=== PATIENT | male | born 1950 | race Caucasian/White ===

== ENCOUNTER 2021-03-09 12:20 | Inpatient (IN) | payer OTHER, SELFPAY ==
--- NOTE | ~2021-03-09 | XR_ITS ---
EXAMINATION: XR CHEST CLINICAL INFORMATION: Shortness of breath COMPARISON: None TECHNIQUE: Portable upright AP view of the chest was obtained. FINDINGS: There are scattered airspace opacities right lung upper and lower zone and left lung mid and lower zone with sparing left apex. There is no pneumothorax or vascular congestion or effusion. The heart is normal in size. The hilar and mediastinal contours and visualized bony structures are unremarkable. XR/XR chest 1V IMPRESSION: 1. Scattered bilateral airspace opacities, greater on the right. 2. No vascular congestion or effusion.
[2021-03-09 12:49] VITALS: BP 159/88; BP 170/90; PULSE 104; PULSE 112; RESP 15; TEMP 37.1; O2SAT 85; O2SAT 91; BMI 31.5
[2021-03-09 13:00] VITALS: O2SAT 88
--- NOTE | 2021-03-09 13:01 | ECG_ITS ---
Test Reason : sob Blood Pressure : / mmHG Vent. Rate : 105 BPM Atrial Rate : 105 BPM P-R Int : 178 ms QRS Dur : 112 ms QT Int : 348 ms P-R-T Axes : 031 -08 018 degrees QTc Int : 459 ms Baseline artifact Sinus tachycardia Inferior infarct , age undetermined Abnormal ECG No previous ECGs available Referred By: Phong Davidson Electronically Signed By:COLETTE SUE
--- NOTE | 2021-03-09 13:04 | ED_ITS ---
HPI - SOB/Dyspnea General Chief Complaint: Dyspnea Stated Complaint: +COVID, SOB 93% 2LPM,DIZZY,LOW APPETITE Time Seen by Provider: 03/09/21 12:50 Source: patient and EMS History of Present Illness HPI Narrative: Patient with approximately 7 days worth of URI symptoms. He states he tested positive for COVID when symptoms started 1 week ago. Positive cough. No sputum. No chest pain. Decreased appetite but no abdominal pain No nausea vomiting diarrhea or constipation. No urinary symptoms. He was vaccinated with Anaplan in August,. Former smoker, quit 8 years ago. Hypertension Bilateral carotid endarterectomies No history that he knows of of COPD or asthma. Related Data Allergies Allergy/AdvReac Type Severity Reaction Status Date / Time No Known Allergies Allergy Unverified 03/09/21 13:01 Review of Systems Constitutional: Constitutional: Reports fatigue and Reports fever(s) Cardiovascular: Comments: No chest pain Respiratory: Comments: Shortness of breath and cough without phlegm Gastrointestinal: Comments: No nausea vomiting diarrhea or constipation. Positive anorexia Musculoskeletal: Comments: No extremity swelling or calf pain Integumentary/Breasts: Comments: No change in color or new rash Neurologic: Comments: No focal weakness Endocrine: Endocrine: Reports fatigue PMFSH Past Medical History Medical History (Updated 03/09/21 @ 14:54 by Phong Davidson MD) Hypertension Pulsus bigeminus Social History Social History Patient Tobacco Use Status: Former Tobacco user Advance Directives: No Advance Directives Information Provided: No Physical Exam Vital Signs: Vital Signs: Last Vital Signs Temp 98.7 F 03/09/21 12:49 Pulse 111 H 03/09/21 14:20 Resp 24 H 03/09/21 14:20 BP 143/74 H 03/09/21 14:20 Pulse Ox 92 03/09/21 14:20 BMI result Body Mass Index 31.5 Oxygen saturation drops to 88% on room air. Mid to low 90s on 2 L nasal cannula Const: Other: Appears fatigued. Resp: Other: Diminished bilaterally Cardio: Other: Regular rate and rhythm GI: Other: Soft nontender Skin: Other: Warm pink and dry Neuro: Other: Nonfocal neuro exam Extrem: Other: No calf tenderness or pedal edema Course Course Course Narrative: Hypoxia secondary to COVID-19 pneumonia Rule out bacterial pneumonia Treated emergency department with Solu-Medrol and albuterol Oxygen by nasal cannula Workup in emergency department shows lab work significant for normal CBC and nondiagnostic chemistries. Troponin is normal. BNP is normal Serology shows positive COVID-19 infection. Chest x-ray shows bilateral ground-glass opacities consistent with COVID pneumonia. D-dimer is mildly elevated at 360, be given extensive disease, on likely represents thromboembolic cause. Will hospitalize for further treatment secondary to hypoxia secondary to COVID- 19 pneumonia No evidence of sepsis MDM - SOB/Dyspnea Lab Data Result diagrams: 03/09/21 14:07 03/09/21 14:07 Labs: Lab Results 03/09/21 03/09/21 03/09/21 Range/Units 14:07 14:07 14:07 WBC 8.7 (4.8-10.8) X10*3/uL RBC 4.20 L (4.60-5.80) X10*6/uL Hgb 13.3 L (14.0-18.0) g/dl Hct 38.9 L (42.0-52.0) % MCV 92.6 (80.0-98.0) fL MCH 31.7 (27.0-33.0) pg MCHC 34.2 (31.0-36.0) g/dl RDW 12.4 (11.0-16.0) % Plt Count 131 L (160-400) X10*3/uL MPV 10.3 (9.4-12.4) fL Immature Gran % (Auto) 0.5 H (0.0-0.4) % Neut % (Auto) 80.1 H (45-73) % Lymph % (Auto) 12.6 L (20-40) % [place] % (Auto) 6.8 (2-11) % Eos % (Auto) 0.0 (0-4) % Baso % (Auto) 0.0 (0-2) % Lymph # (Auto) 1.1 L (1.2-4.9) X10*3/uL [place] # (Auto) 0.6 (0.1-1.2) X10*3/uL Eos # (Auto) 0.0 (0.0-0.4) X10*3/uL Baso # (Auto) 0.0 (0.0-0.2) X10*3/uL Abs Immat Gran (auto) 0.04 H (0.00-0.03) X10*3/uL Absolute Neuts (auto) 7.0 (2.0-8.3) x10*3/uL Absolute Nucleated RBC 0.000 (0.0-0.012) X10*3/uL Nucleated RBC % (auto) 0.0 (0.0-0.2) /100WBC D-Dimer High Sensitivty NG/ML Sodium 140 (135-145) mmol/L Potassium 3.7 (3.3-5.1) mmol/L Chloride 104 (96-108) mmol/L Carbon Dioxide 26 (22-29) mmol/L Anion Gap 14 (12-20) BUN 18 H (9-16) mg/dL Creatinine 1.13 (0.5-1.4) mg/dL Estim Creat Clear Calc 77.4 Estimated GFR > 60 Random Glucose 153 H (60-115) mg/dL Calcium 9.5 (8.4-10.2) mg/dL Total Bilirubin 1.2 H (0.0-1.0) mg/dL AST 45 H (5-37) U/L ALT 39 (0-40) U/L Alkaline Phosphatase 80 (39-117) U/L Troponin I High Sens 16.4 (<3.5-35.0) ng/L B-Natriuretic Peptide (<100) pg/mL Total Protein 7.5 (6.5-8.0) g/dL Albumin 4.1 (3.5-5.0) g/dL COVID-19 (FITO) (Negative) COVID-19 Clin Com 03/09/21 03/09/21 03/09/21 Range/Units 14:07 14:07 14:07 WBC (4.8-10.8) X10*3/uL RBC (4.60-5.80) X10*6/uL Hgb (14.0-18.0) g/dl Hct (42.0-52.0) % MCV (80.0-98.0) fL MCH (27.0-33.0) pg MCHC (31.0-36.0) g/dl RDW (11.0-16.0) % Plt Count (160-400) X10*3/uL MPV (9.4-12.4) fL Immature Gran % (Auto) (0.0-0.4) % Neut % (Auto) (45-73) % Lymph % (Auto) (20-40) % [place] % (Auto) (2-11) % Eos % (Auto) (0-4) % Baso % (Auto) (0-2) % Lymph # (Auto) (1.2-4.9) X10*3/uL [place] # (Auto) (0.1-1.2) X10*3/uL Eos # (Auto) (0.0-0.4) X10*3/uL Baso # (Auto) (0.0-0.2) X10*3/uL Abs Immat Gran (auto) (0.00-0.03) X10*3/uL Absolute Neuts (auto) (2.0-8.3) x10*3/uL Absolute Nucleated RBC (0.0-0.012) X10*3/uL Nucleated RBC % (auto) (0.0-0.2) /100WBC D-Dimer High Sensitivty 360 NG/ML Sodium (135-145) mmol/L Potassium (3.3-5.1) mmol/L Chloride (96-108) mmol/L Carbon Dioxide (22-29) mmol/L Anion Gap (12-20) BUN (9-16) mg/dL Creatinine (0.5-1.4) mg/dL Estim Creat Clear Calc Estimated GFR Random Glucose (60-115) mg/dL Calcium (8.4-10.2) mg/dL Total Bilirubin (0.0-1.0) mg/dL AST (5-37) U/L ALT (0-40) U/L Alkaline Phosphatase (39-117) U/L Troponin I High Sens (<3.5-35.0) ng/L B-Natriuretic Peptide 19 (<100) pg/mL Total Protein (6.5-8.0) g/dL Albumin (3.5-5.0) g/dL COVID-19 (FITO) Positive A (Negative) COVID-19 Clin Com See Note
[2021-03-09] MEDS: Albuterol Sulfate (0.083%) 2.5 MG/3 ML VIAL.NEB INHALE (13:19)
[2021-03-09 13:20] VITALS: PULSE 101; RESP 12; O2SAT 94
[2021-03-09 14:18] LABS: MANUAL DIFF FLAG NO
[2021-03-09 14:20] VITALS: BP 143/74; PULSE 111; RESP 24; O2SAT 92
[2021-03-09 14:22] LABS: Hematocrit 38.9 % (42.0-52.0); Hemoglobin 13.3 g/dl (14.0-18.0); Imm Gran Abs Auto 0.04 X10*3/uL (0.00-0.03); Imm Gran Pct Auto 0.5 % (0.0-0.4); Lymphocytes Absolute Auto 1.1 X10*3/uL (1.2-4.9); Lymphocytes Percent Auto 12.6 % (20-40); Mean Corpuscular HGB Conc 34.2 g/dl (31.0-36.0); Mean Corpuscular Hemoglobin 31.7 pg (27.0-33.0); Mean Corpuscular Volume 92.6 fL (80.0-98.0); Mean Platelet Volume 10.3 fL (9.4-12.4); Monocytes Absolute Auto 0.6 X10*3/uL (0.1-1.2); Monocytes Percent Auto 6.8 % (2-11); Neutrophils Percent Auto 80.1 % (45-73); Platelet Count 131 X10*3/uL (160-400); Red Cell Distribution Width 12.4 % (11.0-16.0); White Blood Count 8.7 X10*3/uL (4.8-10.8)
[2021-03-09] MEDS: methylPREDNISolone Sod Succ 125 MG/2 ML VIAL IVPUSH (14:22)
[2021-03-09] MEDS: 0.9 % Sodium Chloride 500 ML IV (14:22)
[2021-03-09 14:35] LABS: Alanine Aminotransferase 39 U/L (0-40); Albumin Level 4.1 g/dL (3.5-5.0); Alkaline Phosphatase 80 U/L (39-117); Anion Gap 14 (12-20); Aspartate Amino Transferase 45 U/L (5-37); Bilirubin Total 1.2 mg/dL (0.0-1.0); Blood Urea Nitrogen 18 mg/dL (9-16); Calcium 9.5 mg/dL (8.4-10.2); Carbon Dioxide 26 mmol/L (22-29); Chloride 104 mmol/L (96-108); Creatinine Clr Calc Pharmacy 77.4; Estimated Glomerular Filt Rate > 60; Glucose Random 153 mg/dL (60-115); Potassium 3.7 mmol/L (3.3-5.1); Sodium 140 mmol/L (135-145); Total Protein 7.5 g/dL (6.5-8.0)
[2021-03-09 14:37] LABS: D Dimer High Sensitivity 360 NG/ML
[2021-03-09 14:38] LABS: Troponin-I High Sensitivity 16.4 ng/L (<3.5-35.0)
[2021-03-09 14:39] LABS: B Type Natriuretic Peptide 19 pg/mL (<100)
[2021-03-09 14:42] LABS: COVID-19 Test Positive (Negative)
--- NOTE | 2021-03-09 15:40 | PM.IMHP ---
History of Present Illness Date of Service: 03/09/21 Chief Complaint: Shortness of breath A 70 years old male with hypertension as PMH presents to the hospital with complaint of worsening shortness of breath for the last 5 days. He reported that symptoms started almost 1 week to 5 days ago with runny nose and upper respiratory tract symptoms and worsened over the last few days on up until today when he climbs stairs and felt severe shortness of breath and lethargy. He came to the hospital for further evaluation and treatment. Denies any chest pain, nausea, vomiting, abdominal pain or urinary symptoms. The emergency found to be hypoxic on room ai to 88% Admitted for further evaluation and treatment. Review of Systems Review of Systems: No fever, chills but feels generalized weakness and decreased appetite No chest pain, palpitation Dyspnea on exertion No abdominal pain, nausea or vomiting No urinary symptoms No any rash or wounds PMFSH Medical History Hypertension Pulsus bigeminus Pertinent family history: Hypertension in parents Social History Patient Tobacco Use Status: Former Tobacco user Advance Directives: No Advance Directives Information Provided: No Meds Allergies Allergy/AdvReac Type Severity Reaction Status Date / Time No Known Allergies Allergy Unverified 03/09/21 13:01 Active Medications: Current Medications Pharmacy Consult (Consult Rx Perform Med Rec) 1 each MISCELLANE ONCE PRN PRN Reason: Consult order Physical Exam Vital Signs and Narrative: Vital Signs: Last Vital Signs Temp 98.7 F 03/09/21 12:49 Pulse 111 H 03/09/21 14:20 Resp 24 H 03/09/21 14:20 BP 143/74 H 03/09/21 14:20 Pulse Ox 92 03/09/21 14:20 BMI result Body Mass Index 31.5 Const: Other: Constitutional : Alert, oriented, in mild respiratory distress Neck : Normal inspection, Supple Cardiovascular : Palpable pulses, no lower extremity edema, tachycardia Respiratory : Chest wall moving bilaterally, tachypnea, in mild as with distress on oxygen supplement Gastrointestinal: soft, lax, Normal bowel sounds, Non tender Skin : Warm, Dry Neurological : Alert & oriented x3, No focal deficit Results Labs CBC and Chem 7: 03/09/21 14:07 03/09/21 14:07 Labs: Laboratory Results - last 24 hr 03/09/21 03/09/21 03/09/21 14:07 14:07 14:07 MCV 92.6 MCH 31.7 MCHC 34.2 RDW 12.4 Plt Count 131 L MPV 10.3 Immature Gran % (Auto) 0.5 H Neut % (Auto) 80.1 H Lymph % (Auto) 12.6 L [place] % (Auto) 6.8 Eos % (Auto) 0.0 Baso % (Auto) 0.0 Lymph # (Auto) 1.1 L [place] # (Auto) 0.6 Eos # (Auto) 0.0 Baso # (Auto) 0.0 Abs Immat Gran (auto) 0.04 H Absolute Neuts (auto) 7.0 Absolute Nucleated RBC 0.000 Nucleated RBC % (auto) 0.0 D-Dimer High Sensitivty Anion Gap 14 Estim Creat Clear Calc 77.4 Estimated GFR > 60 Random Glucose 153 H Calcium 9.5 Total Bilirubin 1.2 H AST 45 H ALT 39 Alkaline Phosphatase 80 Troponin I High Sens 16.4 B-Natriuretic Peptide Total Protein 7.5 Albumin 4.1 COVID-19 (FITO) COVID-19 [employer] 03/09/21 03/09/21 03/09/21 14:07 14:07 14:07 MCV MCH MCHC RDW Plt Count MPV Immature Gran % (Auto) Neut % (Auto) Lymph % (Auto) [place] % (Auto) Eos % (Auto) Baso % (Auto) Lymph # (Auto) [place] # (Auto) Eos # (Auto) Baso # (Auto) Abs Immat Gran (auto) Absolute Neuts (auto) Absolute Nucleated RBC Nucleated RBC % (auto) D-Dimer High Sensitivty 360 Anion Gap Estim Creat Clear Calc Estimated GFR Random Glucose Calcium Total Bilirubin AST ALT Alkaline Phosphatase Troponin I High Sens B-Natriuretic Peptide 19 Total Protein Albumin COVID-19 (FITO) Positive A COVID-19 Clin Com See Note Imaging Radiologist's Impressions: Impressions Chest X-Ray 03/09/21 14:15 IMPRESSION: 1. Scattered bilateral airspace opacities, greater on the right. 2. No vascular congestion or effusion. Assessment and Plan (1) Acute respiratory failure with hypoxia: Status: Acute (2) COVID-19: Status: Acute A 70 years old male with hypertension as PMH presents to the hospital with complaint of worsening shortness of breath for the last 5 days. Acute hypoxic respiratory failure COVID-19 infection Start dexamethasone 6 mg daily Oxygen supplement, to wean down as tolerated To get ID evaluation for possible remdesivir or other Wean down oxygen as tolerated DVT PPX Lovenox Quality Stroke Does the patient have a stroke diagnosis?: No VTE Prior VTE?: No VTE Risk Level:: Medical - moderate - high VTE Device Contraindication: Treatment Not Indicated VTE Drug Contraindication: N/A - Med Ordered
--- NOTE | 2021-03-09 16:15 | PHA.MEDREC ---
Pharmacy Consult ? Medication Reconciliation Pharmacy has completed the medication reconciliation. Marnie WolfD BCPS
[2021-03-09 17:27] VITALS: BP 132/80; PULSE 100; RESP 28; O2SAT 95
[2021-03-09] MEDS: 0.9 % Sodium Chloride Flush 3 ML SYRINGE IVFLUSH (17:28)
[2021-03-09] MEDS: Enoxaparin Sodium 40 MG/0.4 ML SYRINGE SUBCUT (20:11)
[2021-03-09 20:13] VITALS: PULSE 114; RESP 30; TEMP 36.7; O2SAT 92
--- NOTE | 2021-03-09 22:29 | MHC.CM.PN ---
CM met with admitted patient with bed assignment pending. A&Ox3. IMM reviewed and signed per protocol 03/09/2021 @ 2200. Copy given and one to medical records. No HCP on file. HCP reviewed, completed and signed. Copies given and uploaded into [employer] and [facility]. HCP/ Karlene Avila ([phone]). Fully vaccinated with J&J 06/23/20. No booster. Pt is a of the [employer]. Pt is vet connected. Pt has healthcare at [facility] [place] and uses the [facility]. Pt has veterans insurance and Medicare part A only. Pt lives with his and grandson. Both have been isolating since pt diagnosed with Covid 19 on 03/04/21. Pt uses no DME or services. D/C plan is home without services, unless VNA necessary. Pt will arrange transportation home. CM to follow for d/c needs.
[2021-03-10] VITALS (12 sets, daily range): BP systolic 123–166; BP diastolic 66–88; PULSE 52–100; RESP 16–19; TEMP 36–36.9; O2SAT 88–95
[2021-03-10] MEDS: 0.9 % Sodium Chloride Flush 3 ML SYRINGE IVFLUSH ×4 (02:28→21:09)
[2021-03-10 06:53] LABS: Anion Gap 14 (12-20); Blood Urea Nitrogen 21 mg/dL (9-16); Calcium 8.9 mg/dL (8.4-10.2); Carbon Dioxide 24 mmol/L (22-29); Chloride 106 mmol/L (96-108); Creatinine Clr Calc Pharmacy 78.1; Estimated Glomerular Filt Rate > 60; Glucose Random 243 mg/dL (60-115); Sodium 140 mmol/L (135-145)
[2021-03-10 06:57] LABS: Hematocrit 36.4 % (42.0-52.0); Hemoglobin 12.4 g/dl (14.0-18.0); Mean Corpuscular HGB Conc 34.1 g/dl (31.0-36.0); Mean Corpuscular Hemoglobin 31.6 pg (27.0-33.0); Mean Corpuscular Volume 92.9 fL (80.0-98.0); Mean Platelet Volume 10.5 fL (9.4-12.4); Platelet Count 140 X10*3/uL (160-400); Red Blood Count 3.92 X10*6/uL (4.60-5.80); Red Cell Distribution Width 12.4 % (11.0-16.0); White Blood Count 8.5 X10*3/uL (4.8-10.8)
[2021-03-10] MEDS: Metoprolol Tartrate 100 MG TABLET PO ×2 (09:27→21:09)
[2021-03-10] MEDS: Multivitamin TABLET 1 TAB PO (09:28)
[2021-03-10] MEDS: amLODIPine Besylate 10 MG TABLET PO (09:28)
[2021-03-10] MEDS: Clopidogrel Bisulfate 75 MG TABLET PO (09:28)
[2021-03-10] MEDS: dexAMETHasone sod phosphate 4 MG/ML VIAL 6 MG IVPUSH (09:29)
[2021-03-10] MEDS: Atorvastatin Calcium 80 MG TABLET PO (09:29)
--- NOTE | 2021-03-10 15:23 | P.CNID_ITS ---
History of Present Illness Data of Consult Service Date: 03/10/21 Requesting physician: Sascha Zapien Primary Care Provider: Kami Stephens DO, MD [facility] Reason for consult: COVID He presents with cough for seven days and fatigue He has no complaints Review of Systems Review of Systems: Yes all other systems are reviewed and are negative [facility] Past Medical History Medical History Carotid stenosis Hypertension Pulsus bigeminus Family History Family history: reviewed and not pertinent Surgical History Surgical History H/O carotid endarterectomy Social History Social History Household Members: Family Housing: House Do you presently have visiting nurse or other home services: No Patient Tobacco Use Status: Former Tobacco user Use of substances other than those prescribed or required for medical reasons: No Currently Displaying Signs/Symptoms of Drug Intoxication Withdrawal: No Have you been hit, kicked, punched, or otherwise hurt by someone within the past year? If so, by whom?: No Do you feel safe in your current relationship?: Yes Is there a partner from a previous relationship who is making you feel unsafe now?: No Are you made to feel afraid or neglected: No Advance Directives: No Advance Directives Information Provided: No Do you have thoughts of harming others: None Do you have a plan to hurt others: No Plan Recently lost weight without trying: No Nutrition Risks: No Nutritional Risk Poor oral hygiene: No service: Yes Current occupational status: retired [employer] Allergies Allergy/AdvReac Type Severity Reaction Status Date / Time No Known Allergies Allergy Unverified 03/09/21 13:01 Active Medications: Current Medications Acetaminophen (Acetaminophen 325 Mg Tablet) 650 mg PO Q6H PRN PRN Reason: Pain, Mild (Pain Scale 1-3) Amlodipine Besylate (Amlodipine Besylate 10 Mg Tablet) 10 mg PO DAILY [facility]; Protocol Last Admin: 03/10/21 09:28 Dose: 10 mg Documented by: Atorvastatin Calcium (Atorvastatin Calcium 80 Mg Tablet) 80 mg PO DAILY [facility] Last Admin: 03/10/21 09:29 Dose: 80 mg Documented by: Clopidogrel Bisulfate (Clopidogrel Bisulfate 75 Mg Tablet) 75 mg PO DAILY [facility] Last Admin: 03/10/21 09:28 Dose: 75 mg Documented by: Dexamethasone Sodium Phosphate (Dexamethasone Sod Phosphate 4 Mg/Ml Vial) 6 mg IVPUSH DAILY [facility] Last Admin: 03/10/21 09:29 Dose: 6 mg Documented by: Enoxaparin Sodium (Enoxaparin Sodium 40 Mg/0.4 Ml Syringe) 40 mg SUBCUT Q24H [facility] Last Admin: 03/09/21 20:11 Dose: 40 mg Documented by: Metoprolol Tartrate (Metoprolol Tartrate 100 Mg Tablet) 100 mg PO BID [facility]; Protocol Last Admin: 03/10/21 09:27 Dose: 100 mg Documented by: Multivitamins/Vitamin C (Multivitamin Tablet) 1 tab PO DAILY [facility] Last Admin: 03/10/21 09:28 Dose: 1 tab Documented by: Ondansetron HCl (Ondansetron Hcl 4 Mg/2 Ml Vial) 4 mg IVPUSH Q8H PRN PRN Reason: Nausea and Vomiting Pharmacy Consult (Consult Rx Perform Med Rec) 1 each MISCELLANE ONCE PRN PRN Reason: Consult order Sodium Chloride (0.9 % Sodium Chloride Flush 3 Ml Syringe) 3 ml IVFLUSH QSHIFT [facility] Last Admin: 03/10/21 09:27 Dose: 3 ml Documented by: Home Medications Medication Instructions Recorded Confirmed Last Taken Type amlodipine 10 mg tablet 10 mg PO DAILY 03/09/21 03/09/21 Unknown History atorvastatin 80 mg tablet 80 mg PO DAILY 03/09/21 03/09/21 Unknown History clopidogrel 75 mg tablet 75 mg PO DAILY 03/09/21 03/09/21 Unknown History metoprolol tartrate 100 mg tablet 100 mg PO BID 03/09/21 03/09/21 Unknown History multivitamin 1 tab PO DAILY 03/09/21 03/09/21 Unknown History Physical Exam Vital Signs: Vital Signs: Last Vital Signs Temp 96.8 F 03/10/21 11:25 Pulse 80 03/10/21 11:25 Resp 18 03/10/21 11:25 BP 147/74 H 03/10/21 11:25 Pulse Ox 91 L 03/10/21 11:25 BMI result Body Mass Index 31.5 Const: General: cooperative Eyes: Pupils: Equal, round and reactive pupils present Resp: Effort & Inspection: normal respiratory effort Cardio: Rate: regular rate Rhythm: regular rhythm GI: Inspection: Yes normal to inspection Palpation (GI): Soft to palpation and nontender Skin: General skin exam: no rashes or lesions noted Neuro: Cranial nerves: Yes Equal, round and reactive pupils present Results Labs CBC & Chem 7: 03/10/21 06:18 03/10/21 06:18 Labs: Short CBC 03/10/21 Range/Units 06:18 WBC 8.5 (4.8-10.8) X10*3/uL Hgb 12.4 L (14.0-18.0) g/dl Hct 36.4 L (42.0-52.0) % Plt Count 140 L (160-400) X10*3/uL BMP 03/10/21 06:18 Sodium 140 Potassium 4.0 Chloride 106 Carbon Dioxide 24 BUN 21 H Creatinine 1.12 Calcium 8.9 D Assessment and Plan (1) Acute respiratory failure with hypoxia: Status: Acute He has COVID He has oxygen demand but not high flow (2) COVID-19: Status: Acute Would continue oxygen Would continue Dexamethasone No Remdesivir or baricitinib at this time
--- NOTE | 2021-03-10 15:42 | HO.PM.IMPN ---
Subjective Subjective Date of Service: 03/10/21 Interval History: cc: sob interval history: some improvement Cardiovascular Cardiovascular: Reports no additional cardiovascular complaints Respiratory Respiratory: Reports no additional respiratory complaints Physical Exam Vital Signs: Vital Signs: Last Vital Signs Temp 98 F 03/10/21 15:33 Pulse 80 03/10/21 15:33 Resp 16 03/10/21 15:33 BP 130/66 03/10/21 15:33 Pulse Ox 90 L 03/10/21 15:33 BMI result Body Mass Index 31.5 General: AO X 3, no acute distress Resp: diminsihed bilateral, no accessory muscles used CVS: S1,S2,RRR GI: soft, non tender, non distended Neuro: motor grossly intact, alert Psych: appropriate affect, appropriate insight Objective Data Active Medications Acetaminophen (Acetaminophen 325 Mg Tablet) 650 mg PO Q6H PRN PRN Reason: Pain, Mild (Pain Scale 1-3) Amlodipine Besylate (Amlodipine Besylate 10 Mg Tablet) 10 mg PO DAILY [facility]; Protocol Last Admin: 03/10/21 09:28 Dose: 10 mg Documented by: YELENA Atorvastatin Calcium (Atorvastatin Calcium 80 Mg Tablet) 80 mg PO DAILY [facility] Last Admin: 03/10/21 09:29 Dose: 80 mg Documented by: YELENA Clopidogrel Bisulfate (Clopidogrel Bisulfate 75 Mg Tablet) 75 mg PO DAILY [facility] Last Admin: 03/10/21 09:28 Dose: 75 mg Documented by: YELENA Dexamethasone Sodium Phosphate (Dexamethasone Sod Phosphate 4 Mg/Ml Vial) 6 mg IVPUSH DAILY [facility] Last Admin: 03/10/21 09:29 Dose: 6 mg Documented by: YELENA Enoxaparin Sodium (Enoxaparin Sodium 40 Mg/0.4 Ml Syringe) 40 mg SUBCUT Q24H [facility] Last Admin: 03/09/21 20:11 Dose: 40 mg Documented by: BRYN Metoprolol Tartrate (Metoprolol Tartrate 100 Mg Tablet) 100 mg PO BID [facility]; Protocol Last Admin: 03/10/21 09:27 Dose: 100 mg Documented by: YELENA Multivitamins/Vitamin C (Multivitamin Tablet) 1 tab PO DAILY [facility] Last Admin: 03/10/21 09:28 Dose: 1 tab Documented by: YELENA Ondansetron HCl (Ondansetron Hcl 4 Mg/2 Ml Vial) 4 mg IVPUSH Q8H PRN PRN Reason: Nausea and Vomiting Pharmacy Consult (Consult Rx Perform Med Rec) 1 each MISCELLANE ONCE PRN PRN Reason: Consult order Sodium Chloride (0.9 % Sodium Chloride Flush 3 Ml Syringe) 3 ml IVFLUSH QSHIFT [facility] Last Admin: 03/10/21 09:27 Dose: 3 ml Documented by: YELENA Labs CBC & Chem 7: 03/10/21 06:18 03/10/21 06:18 Labs: Laboratory Results - last 24 hr 03/10/21 03/10/21 06:18 06:18 MCV 92.9 MCH 31.6 MCHC 34.1 RDW 12.4 Plt Count 140 L MPV 10.5 Absolute Nucleated RBC 0.000 Nucleated RBC % (auto) 0.0 Anion Gap 14 Estim Creat Clear Calc 78.1 Estimated GFR > 60 Random Glucose 243 H D Calcium 8.9 D Assessment and Plan (1) COVID-19: Status: Acute Assessment and Plan: 70-year-old male presented with shortness of breath Acute hypoxic respiratory failure secondary to COVID-19 pneumonia Date of symptom onset approximately 03/03/2021 Continue dexamethasone day 2 Wean O2 as tolerated Monitor prognostic labs Carotid stenosis Plavix, statin Hypertension Amlodipine, Lopressor DVT prophylaxis with Lovenox Quality Stroke Does the patient have a stroke diagnosis?: No VTE Prior VTE?: No VTE Risk Level:: Medical - moderate - high VTE Device Contraindication: Treatment Not Indicated VTE Drug Contraindication: N/A - Med Ordered
[2021-03-10] MEDS: Enoxaparin Sodium 40 MG/0.4 ML SYRINGE SUBCUT (18:45)
[2021-03-10] MEDS: ondansetron HCL 4 MG/2 ML VIAL IVPUSH (21:09)
[2021-03-11] MEDS: Melatonin 3 MG TABLET 6 MG PO ×2 (01:10→22:37)
[2021-03-11] MEDS: Calcium Carbonate 750 MG TAB.CHEW PO (01:23)
[2021-03-11 01:25] LABS: Glucose, Whole Blood 194 mg/dL (60-115)
[2021-03-11 03:23] VITALS: BP 140/77; PULSE 66; RESP 20; TEMP 36.6; O2SAT 91
--- NOTE | 2021-03-11 04:06 | PC.NURSE ---
approx midnoc, pt c/o insomnia & heartburn. notified Dr. Hutchinson, pt states he takes melatonin at home. new order received for melatonin 6mg po & tums 1 tab po, given with effect of sleep and no further complaints
[2021-03-11 06:29] LABS: Mean Corpuscular HGB Conc 34.3 g/dl (31.0-36.0); Mean Corpuscular Hemoglobin 31.8 pg (27.0-33.0); Mean Corpuscular Volume 92.8 fL (80.0-98.0); Mean Platelet Volume 10.3 fL (9.4-12.4); Platelet Count 170 X10*3/uL (160-400); Red Blood Count 3.77 X10*6/uL (4.60-5.80); Red Cell Distribution Width 12.4 % (11.0-16.0); White Blood Count 15.7 X10*3/uL (4.8-10.8)
[2021-03-11 06:48] LABS: Anion Gap 13 (12-20); Blood Urea Nitrogen 32 mg/dL (9-16); C Reactive Protein 4.53 mg/dL (< or = 0.50); Calcium 9.3 mg/dL (8.4-10.2); Carbon Dioxide 26 mmol/L (22-29); Chloride 105 mmol/L (96-108); Creatinine Clr Calc Pharmacy 82.5; Estimated Glomerular Filt Rate > 60; Glucose Fasting 196 mg/dL (60-99); Potassium 4.1 mmol/L (3.3-5.1); Sodium 140 mmol/L (135-145)
[2021-03-11 06:58] LABS: Lactate Dehydrogenase 384 U/L (118-273)
[2021-03-11 07:30] VITALS: BP 137/61; PULSE 70; RESP 20; TEMP 36.8; O2SAT 86
[2021-03-11] MEDS: Multivitamin TABLET 1 TAB PO (09:25)
[2021-03-11] MEDS: dexAMETHasone sod phosphate 4 MG/ML VIAL 6 MG IVPUSH (09:25)
[2021-03-11] MEDS: Atorvastatin Calcium 80 MG TABLET PO (09:25)
[2021-03-11] MEDS: 0.9 % Sodium Chloride Flush 3 ML SYRINGE IVFLUSH ×4 (09:25→22:48)
[2021-03-11] MEDS: amLODIPine Besylate 10 MG TABLET PO (09:25)
[2021-03-11] MEDS: Metoprolol Tartrate 100 MG TABLET PO ×2 (09:25→22:36)
[2021-03-11] MEDS: Clopidogrel Bisulfate 75 MG TABLET PO (09:26)
[2021-03-11 11:19] VITALS: BP 149/72; PULSE 62; RESP 20; TEMP 36.3; O2SAT 89; O2SAT 92
--- NOTE | 2021-03-11 11:38 | P.PNIM_ITS ---
Subjective Subjective Date of Service: 03/11/21 Interval History: cc: sob interval history: unchanged Cardiovascular Cardiovascular: Reports no additional cardiovascular complaints Gastrointestinal Gastrointestinal: Reports no additional gastrointestinal complaints Physical Exam Vital Signs: Vital Signs: Last Vital Signs Temp 97.4 F 03/11/21 11:19 Pulse 62 03/11/21 11:19 Resp 20 03/11/21 11:19 BP 149/72 H 03/11/21 11:19 Pulse Ox 89 L 03/11/21 11:19 BMI result Body Mass Index 31.5 General: AO X 3, no acute distress Resp:? diminsihed bilateral, no accessory muscles used CVS: S1,S2,RRR GI: soft, non tender, non distended Neuro:? motor grossly intact, alert Psych: appropriate affect, appropriate insight? Objective Data Active Medications Acetaminophen (Acetaminophen 325 Mg Tablet) 650 mg PO Q6H PRN PRN Reason: Pain, Mild (Pain Scale 1-3) Amlodipine Besylate (Amlodipine Besylate 10 Mg Tablet) 10 mg PO DAILY [facility]; Protocol Last Admin: 03/11/21 09:25 Dose: 10 mg Documented by: CEDRIC Atorvastatin Calcium (Atorvastatin Calcium 80 Mg Tablet) 80 mg PO DAILY [facility] Last Admin: 03/11/21 09:25 Dose: 80 mg Documented by: CEDRIC Clopidogrel Bisulfate (Clopidogrel Bisulfate 75 Mg Tablet) 75 mg PO DAILY [facility] Last Admin: 03/11/21 09:26 Dose: 75 mg Documented by: CEDRIC Dexamethasone Sodium Phosphate (Dexamethasone Sod Phosphate 4 Mg/Ml Vial) 6 mg IVPUSH DAILY [facility] Last Admin: 03/11/21 09:25 Dose: 6 mg Documented by: CEDRIC Enoxaparin Sodium (Enoxaparin Sodium 40 Mg/0.4 Ml Syringe) 40 mg SUBCUT Q24H [facility] Last Admin: 03/10/21 18:45 Dose: 40 mg Documented by: YELENA Melatonin (Melatonin 3 Mg Tablet) 6 mg PO BEDTIME PRN PRN Reason: Insomnia Last Admin: 03/11/21 01:10 Dose: 6 mg Documented by: GELA Metoprolol Tartrate (Metoprolol Tartrate 100 Mg Tablet) 100 mg PO BID [facility]; Protocol Last Admin: 03/11/21 09:25 Dose: 100 mg Documented by: CEDRIC Multivitamins/Vitamin C (Multivitamin Tablet) 1 tab PO DAILY [facility] Last Admin: 03/11/21 09:25 Dose: 1 tab Documented by: CEDRIC Ondansetron HCl (Ondansetron Hcl 4 Mg/2 Ml Vial) 4 mg IVPUSH Q8H PRN PRN Reason: Nausea and Vomiting Last Admin: 03/10/21 21:09 Dose: 4 mg Documented by: GELA Pharmacy Consult (Consult Rx Perform Med Rec) 1 each MISCELLANE ONCE PRN PRN Reason: Consult order Sodium Chloride (0.9 % Sodium Chloride Flush 3 Ml Syringe) 3 ml IVFLUSH QSHIFT [facility] Last Admin: 03/11/21 09:25 Dose: 3 ml Documented by: CEDRIC Labs CBC & Chem 7: 03/11/21 06:02 03/11/21 06:02 Labs: Laboratory Results - last 24 hr 03/11/21 03/11/21 03/11/21 01:20 06:02 06:02 MCV 92.8 MCH 31.8 MCHC 34.3 RDW 12.4 Plt Count 170 MPV 10.3 Absolute Nucleated RBC 0.000 Nucleated RBC % (auto) 0.0 Anion Gap 13 Estim Creat Clear Calc 82.5 Estimated GFR > 60 POC Glucose 194 H Fasting Glucose 196 H Calcium 9.3 Lactate Dehydrogenase 384 H C-Reactive Protein 4.53 H Microbiology Microbiology Results: Microbiology 03/09/21 14:19 Blood Culture - Preliminary Blood - Venous No growth after 24 hours. 03/09/21 14:07 Blood Culture - Preliminary Blood - Venous No growth after 24 hours. Assessment and Plan (1) COVID-19: Status: Acute Assessment and Plan: 70-year-old male presented with shortness of breath Acute hypoxic respiratory failure secondary to COVID-19 pneumonia Date of symptom onset approximately 03/03/2021 Continue dexamethasone day 3 Wean O2 as tolerated Monitor prognostic labs Carotid stenosis Plavix, statin Hypertension Amlodipine, Lopressor DVT prophylaxis with Lovenox Quality Stroke Does the patient have a stroke diagnosis?: No VTE Prior VTE?: No VTE Risk Level:: Medical - moderate - high VTE Device Contraindication: Treatment Not Indicated VTE Drug Contraindication: N/A - Med Ordered
[2021-03-11 15:08] VITALS: BP 124/70; PULSE 65; RESP 20; TEMP 36.7; O2SAT 92
[2021-03-11] MEDS: Enoxaparin Sodium 40 MG/0.4 ML SYRINGE SUBCUT (17:01)
[2021-03-11 19:06] VITALS: BP 144/76; PULSE 71; RESP 20; TEMP 36.8; O2SAT 90
[2021-03-11 22:36] VITALS: BP 144/76; PULSE 71
[2021-03-12] VITALS (10 sets, daily range): BP systolic 124–162; BP diastolic 61–80; PULSE 55–76; RESP 18–20; TEMP 36.3–37.1; O2SAT 90–96
[2021-03-12] MEDS: Multivitamin TABLET 1 TAB PO (08:54)
[2021-03-12] MEDS: Clopidogrel Bisulfate 75 MG TABLET PO (08:54)
[2021-03-12] MEDS: dexAMETHasone sod phosphate 4 MG/ML VIAL 6 MG IVPUSH (08:54)
[2021-03-12] MEDS: Atorvastatin Calcium 80 MG TABLET PO (08:54)
[2021-03-12] MEDS: amLODIPine Besylate 10 MG TABLET PO (08:55)
[2021-03-12] MEDS: Metoprolol Tartrate 100 MG TABLET PO ×2 (08:56→20:35)
--- NOTE | 2021-03-12 10:23 | P.PNIM_ITS ---
Subjective Subjective Date of Service: 03/12/21 Interval History: cc: sob interval history: unchanged Cardiovascular Cardiovascular: Reports no additional cardiovascular complaints Respiratory Respiratory: Reports no additional respiratory complaints Physical Exam Vital Signs: Vital Signs: Last Vital Signs Temp 97.4 F 03/12/21 07:52 Pulse 64 03/12/21 08:56 Resp 20 03/12/21 07:52 BP 153/77 H 03/12/21 08:56 Pulse Ox 90 L 03/12/21 07:52 BMI result Body Mass Index 31.5 General: AO X 3, no acute distress Resp:? diminsihed bilateral, no accessory muscles used CVS: S1,S2,RRR GI: soft, non tender, non distended Neuro:? motor grossly intact, alert Psych: appropriate affect, appropriate insight? Objective Data Active Medications Acetaminophen (Acetaminophen 325 Mg Tablet) 650 mg PO Q6H PRN PRN Reason: Pain, Mild (Pain Scale 1-3) Amlodipine Besylate (Amlodipine Besylate 10 Mg Tablet) 10 mg PO DAILY [facility]; Protocol Last Admin: 03/12/21 08:55 Dose: 10 mg Documented by: ENOCH Atorvastatin Calcium (Atorvastatin Calcium 80 Mg Tablet) 80 mg PO DAILY [facility] Last Admin: 03/12/21 08:54 Dose: 80 mg Documented by: ENOCH Clopidogrel Bisulfate (Clopidogrel Bisulfate 75 Mg Tablet) 75 mg PO DAILY [facility] Last Admin: 03/12/21 08:54 Dose: 75 mg Documented by: ENOCH Dexamethasone Sodium Phosphate (Dexamethasone Sod Phosphate 4 Mg/Ml Vial) 6 mg IVPUSH DAILY [facility] Last Admin: 03/12/21 08:54 Dose: 6 mg Documented by: ENOCH Enoxaparin Sodium (Enoxaparin Sodium 40 Mg/0.4 Ml Syringe) 40 mg SUBCUT Q24H [facility] Last Admin: 03/11/21 17:01 Dose: 40 mg Documented by: CHELY Melatonin (Melatonin 3 Mg Tablet) 6 mg PO BEDTIME PRN PRN Reason: Insomnia Last Admin: 03/11/21 22:37 Dose: 6 mg Documented by: GELA Metoprolol Tartrate (Metoprolol Tartrate 100 Mg Tablet) 100 mg PO BID [facility]; Protocol Last Admin: 03/12/21 08:56 Dose: 100 mg Documented by: ENOCH Multivitamins/Vitamin C (Multivitamin Tablet) 1 tab PO DAILY [facility] Last Admin: 03/12/21 08:54 Dose: 1 tab Documented by: ENOCH Ondansetron HCl (Ondansetron Hcl 4 Mg/2 Ml Vial) 4 mg IVPUSH Q8H PRN PRN Reason: Nausea and Vomiting Last Admin: 03/10/21 21:09 Dose: 4 mg Documented by: GELA Pharmacy Consult (Consult Rx Perform Med Rec) 1 each MISCELLANE ONCE PRN PRN Reason: Consult order Sodium Chloride (0.9 % Sodium Chloride Flush 3 Ml Syringe) 3 ml IVFLUSH QSHIFT [facility] Last Admin: 03/11/21 22:48 Dose: 3 ml Documented by: GELA Labs CBC & Chem 7: 03/11/21 06:02 03/11/21 06:02 Microbiology Microbiology Results: Microbiology 03/09/21 14:19 Blood Culture - Preliminary Blood - Venous No growth after 48 hours. 03/09/21 14:07 Blood Culture - Preliminary Blood - Venous No growth after 48 hours. Assessment and Plan (1) COVID-19: Status: Acute Assessment and Plan: 70-year-old male presented with shortness of breath Acute hypoxic respiratory failure secondary to COVID-19 pneumonia Date of symptom onset approximately 03/03/2021 Continue dexamethasone day 4 Wean O2 as tolerated Monitor prognostic labs Carotid stenosis Plavix, statin Hypertension Amlodipine, Lopressor DVT prophylaxis with Lovenox Quality Stroke Does the patient have a stroke diagnosis?: No VTE Prior VTE?: No VTE Risk Level:: Medical - moderate - high VTE Device Contraindication: Treatment Not Indicated VTE Drug Contraindication: N/A - Med Ordered
[2021-03-12] MEDS: 0.9 % Sodium Chloride Flush 3 ML SYRINGE IVFLUSH ×2 (16:59→20:38)
[2021-03-12] MEDS: Enoxaparin Sodium 40 MG/0.4 ML SYRINGE SUBCUT (17:02)
[2021-03-12] MEDS: Melatonin 3 MG TABLET 6 MG PO (20:35)
[2021-03-13] VITALS (10 sets, daily range): BP systolic 112–159; BP diastolic 63–80; PULSE 63–80; RESP 18–20; TEMP 35.5–36.8; O2SAT 90–94
--- NOTE | 2021-03-13 03:22 | PC.NURSE ---
Patients sats dropped to 78% while on room air. Educated patient on importance of having oxygen on while ambulating. Pt refusing to use portable oxygen tank. Pt states I am still pretty resilient.
[2021-03-13 08:21] LABS: Hematocrit 39.1 % (42.0-52.0); Hemoglobin 13.2 g/dl (14.0-18.0); Mean Corpuscular HGB Conc 33.8 g/dl (31.0-36.0); Mean Corpuscular Hemoglobin 31.4 pg (27.0-33.0); Mean Corpuscular Volume 93.1 fL (80.0-98.0); Mean Platelet Volume 10.5 fL (9.4-12.4); Platelet Count 222 X10*3/uL (160-400); Red Cell Distribution Width 12.3 % (11.0-16.0)
[2021-03-13 08:45] LABS: Lactate Dehydrogenase 346 U/L (118-273)
[2021-03-13 08:47] LABS: Anion Gap 12 (12-20); Blood Urea Nitrogen 26 mg/dL (9-16); C Reactive Protein 1.72 mg/dL (< or = 0.50); Calcium 9.5 mg/dL (8.4-10.2); Carbon Dioxide 29 mmol/L (22-29); Chloride 105 mmol/L (96-108); Creatinine Clr Calc Pharmacy 91.1; Estimated Glomerular Filt Rate > 60; Glucose Fasting 134 mg/dL (60-99); Potassium 4.3 mmol/L (3.3-5.1); Sodium 142 mmol/L (135-145)
[2021-03-13] MEDS: dexAMETHasone sod phosphate 4 MG/ML VIAL 6 MG IVPUSH (10:18)
[2021-03-13] MEDS: Clopidogrel Bisulfate 75 MG TABLET PO (10:19)
[2021-03-13] MEDS: amLODIPine Besylate 10 MG TABLET PO (10:19)
[2021-03-13] MEDS: Metoprolol Tartrate 100 MG TABLET PO ×2 (10:20→19:50)
[2021-03-13] MEDS: Atorvastatin Calcium 80 MG TABLET PO (10:20)
[2021-03-13] MEDS: Multivitamin TABLET 1 TAB PO (10:20)
--- NOTE | 2021-03-13 10:22 | HO.PM.IMPN ---
Subjective Subjective Date of Service: 03/13/21 Interval History: cc: sob interval history: unchanged Cardiovascular Cardiovascular: Reports no additional cardiovascular complaints Gastrointestinal Gastrointestinal: Reports no additional gastrointestinal complaints Physical Exam Vital Signs: Vital Signs: Last Vital Signs Temp 98 F 03/13/21 07:13 Pulse 64 03/13/21 07:13 Resp 20 03/13/21 07:13 BP 140/72 H 03/13/21 07:13 Pulse Ox 92 03/13/21 07:13 BMI result Body Mass Index 31.5 General: AO X 3, no acute distress Resp:? diminsihed bilateral, no accessory muscles used CVS: S1,S2,RRR GI: soft, non tender, non distended Neuro:? motor grossly intact, alert Psych: appropriate affect, appropriate insight? Objective Data Active Medications Acetaminophen (Acetaminophen 325 Mg Tablet) 650 mg PO Q6H PRN PRN Reason: Pain, Mild (Pain Scale 1-3) Amlodipine Besylate (Amlodipine Besylate 10 Mg Tablet) 10 mg PO DAILY [facility]; Protocol Last Admin: 03/12/21 08:55 Dose: 10 mg Documented by: ENOCH Atorvastatin Calcium (Atorvastatin Calcium 80 Mg Tablet) 80 mg PO DAILY [facility] Last Admin: 03/12/21 08:54 Dose: 80 mg Documented by: ENOCH Clopidogrel Bisulfate (Clopidogrel Bisulfate 75 Mg Tablet) 75 mg PO DAILY [facility] Last Admin: 03/12/21 08:54 Dose: 75 mg Documented by: ENOCH Dexamethasone Sodium Phosphate (Dexamethasone Sod Phosphate 4 Mg/Ml Vial) 6 mg IVPUSH DAILY [facility] Last Admin: 03/12/21 08:54 Dose: 6 mg Documented by: ENOCH Enoxaparin Sodium (Enoxaparin Sodium 40 Mg/0.4 Ml Syringe) 40 mg SUBCUT Q24H [facility] Last Admin: 03/12/21 17:02 Dose: 40 mg Documented by: ENOCH Melatonin (Melatonin 3 Mg Tablet) 6 mg PO BEDTIME PRN PRN Reason: Insomnia Last Admin: 03/12/21 20:35 Dose: 6 mg Documented by: ITZEL Metoprolol Tartrate (Metoprolol Tartrate 100 Mg Tablet) 100 mg PO BID [facility]; Protocol Last Admin: 03/12/21 20:35 Dose: 100 mg Documented by: ITZEL Multivitamins/Vitamin C (Multivitamin Tablet) 1 tab PO DAILY [facility] Last Admin: 03/12/21 08:54 Dose: 1 tab Documented by: ENOCH Ondansetron HCl (Ondansetron Hcl 4 Mg/2 Ml Vial) 4 mg IVPUSH Q8H PRN PRN Reason: Nausea and Vomiting Last Admin: 03/10/21 21:09 Dose: 4 mg Documented by: GELA Pharmacy Consult (Consult Rx Perform Med Rec) 1 each MISCELLANE ONCE PRN PRN Reason: Consult order Sodium Chloride (0.9 % Sodium Chloride Flush 3 Ml Syringe) 3 ml IVFLUSH QSHIFT [facility] Last Admin: 03/12/21 20:38 Dose: 3 ml Documented by: ITZEL Labs CBC & Chem 7: 03/13/21 08:02 03/13/21 08:02 Labs: Laboratory Results - last 24 hr 03/13/21 03/13/21 08:02 08:02 MCV 93.1 MCH 31.4 MCHC 33.8 RDW 12.3 Plt Count 222 D MPV 10.5 Absolute Nucleated RBC 0.000 Nucleated RBC % (auto) 0.0 Anion Gap 12 Estim Creat Clear Calc 91.1 Estimated GFR > 60 Fasting Glucose 134 H Calcium 9.5 Lactate Dehydrogenase 346 H C-Reactive Protein 1.72 H Assessment and Plan (1) COVID-19: Status: Acute Assessment and Plan: 70-year-old male presented with shortness of breath Acute hypoxic respiratory failure secondary to COVID-19 pneumonia Date of symptom onset approximately 03/03/2021 Continue dexamethasone day 5 Wean O2 as tolerated Monitor prognostic labs - improving Carotid stenosis Plavix, statin Hypertension Amlodipine, Lopressor DVT prophylaxis with Lovenox Quality Stroke Does the patient have a stroke diagnosis?: No VTE Prior VTE?: No VTE Risk Level:: Medical - moderate - high VTE Device Contraindication: Treatment Not Indicated VTE Drug Contraindication: N/A - Med Ordered
[2021-03-13] MEDS: 0.9 % Sodium Chloride Flush 3 ML SYRINGE IVFLUSH ×3 (18:11→19:52)
[2021-03-13] MEDS: Enoxaparin Sodium 40 MG/0.4 ML SYRINGE SUBCUT (18:12)
[2021-03-13] MEDS: Melatonin 3 MG TABLET 6 MG PO (19:51)
[2021-03-14] VITALS (8 sets, daily range): BP systolic 138–164; BP diastolic 68–78; PULSE 58–74; RESP 14–22; TEMP 36.2–37.3; O2SAT 90–98
[2021-03-14] MEDS: Metoprolol Tartrate 100 MG TABLET PO ×2 (09:02→19:57)
[2021-03-14] MEDS: Clopidogrel Bisulfate 75 MG TABLET PO (09:03)
[2021-03-14] MEDS: amLODIPine Besylate 10 MG TABLET PO (09:03)
[2021-03-14] MEDS: Multivitamin TABLET 1 TAB PO (09:03)
[2021-03-14] MEDS: Atorvastatin Calcium 80 MG TABLET PO (09:03)
[2021-03-14] MEDS: 0.9 % Sodium Chloride Flush 3 ML SYRINGE IVFLUSH ×3 (09:04→19:57)
[2021-03-14] MEDS: dexAMETHasone sod phosphate 4 MG/ML VIAL 6 MG IVPUSH (09:04)
--- NOTE | 2021-03-14 09:54 | P.PNIM_ITS ---
Subjective Subjective Date of Service: 03/14/21 Interval History: ?cc: sob interval history: a little worse today Cardiovascular Cardiovascular: Reports no additional cardiovascular complaints Gastrointestinal Gastrointestinal: Reports no additional gastrointestinal complaints Physical Exam Vital Signs: Vital Signs: Last Vital Signs Temp 98.1 F 03/14/21 08:00 Pulse 72 03/14/21 09:03 Resp 14 03/14/21 08:00 BP 138/68 03/14/21 09:03 Pulse Ox 90 L 03/14/21 08:00 BMI result Body Mass Index 31.5 General: AO X 3, no acute distress Resp:? diminsihed bilateral, no accessory muscles used CVS: S1,S2,RRR GI: soft, non tender, non distended Neuro:? motor grossly intact, alert Psych: appropriate affect, appropriate insight? Objective Data Active Medications Acetaminophen (Acetaminophen 325 Mg Tablet) 650 mg PO Q6H PRN PRN Reason: Pain, Mild (Pain Scale 1-3) Amlodipine Besylate (Amlodipine Besylate 10 Mg Tablet) 10 mg PO DAILY [facility]; Protocol Last Admin: 03/14/21 09:03 Dose: 10 mg Documented by: LISA Atorvastatin Calcium (Atorvastatin Calcium 80 Mg Tablet) 80 mg PO DAILY [facility] Last Admin: 03/14/21 09:03 Dose: 80 mg Documented by: LISA Clopidogrel Bisulfate (Clopidogrel Bisulfate 75 Mg Tablet) 75 mg PO DAILY [facility] Last Admin: 03/14/21 09:03 Dose: 75 mg Documented by: LISA Dexamethasone Sodium Phosphate (Dexamethasone Sod Phosphate 4 Mg/Ml Vial) 6 mg IVPUSH DAILY [facility] Last Admin: 03/14/21 09:04 Dose: 6 mg Documented by: LISA Enoxaparin Sodium (Enoxaparin Sodium 40 Mg/0.4 Ml Syringe) 40 mg SUBCUT Q24H [facility] Last Admin: 03/13/21 18:12 Dose: 40 mg Documented by: LISA Melatonin (Melatonin 3 Mg Tablet) 6 mg PO BEDTIME PRN PRN Reason: Insomnia Last Admin: 03/13/21 19:51 Dose: 6 mg Documented by: ITZEL Metoprolol Tartrate (Metoprolol Tartrate 100 Mg Tablet) 100 mg PO BID [facility]; Protocol Last Admin: 03/14/21 09:02 Dose: 100 mg Documented by: LISA Multivitamins/Vitamin C (Multivitamin Tablet) 1 tab PO DAILY [facility] Last Admin: 03/14/21 09:03 Dose: 1 tab Documented by: LISA Ondansetron HCl (Ondansetron Hcl 4 Mg/2 Ml Vial) 4 mg IVPUSH Q8H PRN PRN Reason: Nausea and Vomiting Last Admin: 03/10/21 21:09 Dose: 4 mg Documented by: GELA Pharmacy Consult (Consult Rx Perform Med Rec) 1 each MISCELLANE ONCE PRN PRN Reason: Consult order Sodium Chloride (0.9 % Sodium Chloride Flush 3 Ml Syringe) 3 ml IVFLUSH QSHIFT [facility] Last Admin: 03/14/21 09:04 Dose: 3 ml Documented by: LISA Labs CBC & Chem 7: 03/13/21 08:02 03/13/21 08:02 Assessment and Plan (1) COVID-19: Status: Acute Assessment and Plan: 70-year-old male presented with shortness of breath Acute hypoxic respiratory failure secondary to COVID-19 pneumonia Date of symptom onset approximately 03/03/2021 Continue dexamethasone day 6 Wean O2 as tolerated - slight increase in o2 requirements Monitor prognostic labs - improving Carotid stenosis Plavix, statin Hypertension Amlodipine, Lopressor DVT prophylaxis with Lovenox Quality Stroke Does the patient have a stroke diagnosis?: No VTE Prior VTE?: No VTE Risk Level:: Medical - moderate - high VTE Device Contraindication: Treatment Not Indicated VTE Drug Contraindication: N/A - Med Ordered
[2021-03-14] MEDS: Enoxaparin Sodium 40 MG/0.4 ML SYRINGE SUBCUT (18:10)
[2021-03-14] MEDS: Melatonin 3 MG TABLET 6 MG PO (19:56)
[2021-03-15] VITALS (9 sets, daily range): BP systolic 119–160; BP diastolic 66–87; PULSE 65–71; RESP 16–20; TEMP 35.9–36.7; O2SAT 89–96
[2021-03-15 06:52] LABS: Hematocrit 38.6 % (42.0-52.0); Mean Corpuscular HGB Conc 33.7 g/dl (31.0-36.0); Mean Corpuscular Hemoglobin 31.3 pg (27.0-33.0); Mean Corpuscular Volume 92.8 fL (80.0-98.0); Mean Platelet Volume 10.4 fL (9.4-12.4); Platelet Count 229 X10*3/uL (160-400); Red Blood Count 4.16 X10*6/uL (4.60-5.80); Red Cell Distribution Width 12.3 % (11.0-16.0); White Blood Count 10.8 X10*3/uL (4.8-10.8)
[2021-03-15 07:01] LABS: D Dimer High Sensitivity 420 NG/ML
[2021-03-15 07:13] LABS: Anion Gap 12 (12-20); Blood Urea Nitrogen 24 mg/dL (9-16); C Reactive Protein 4.42 mg/dL (< or = 0.50); Carbon Dioxide 27 mmol/L (22-29); Chloride 104 mmol/L (96-108); Creatinine Clr Calc Pharmacy 102.9; Estimated Glomerular Filt Rate > 60; Glucose Fasting 151 mg/dL (60-99); Lactate Dehydrogenase 301 U/L (118-273); Potassium 4.1 mmol/L (3.3-5.1); Sodium 139 mmol/L (135-145)
[2021-03-15] MEDS: Multivitamin TABLET 1 TAB PO (09:06)
[2021-03-15] MEDS: 0.9 % Sodium Chloride Flush 3 ML SYRINGE IVFLUSH ×2 (09:07→15:28)
[2021-03-15] MEDS: amLODIPine Besylate 10 MG TABLET PO (09:07)
[2021-03-15] MEDS: Metoprolol Tartrate 100 MG TABLET PO ×2 (09:07→20:01)
[2021-03-15] MEDS: Atorvastatin Calcium 80 MG TABLET PO (09:07)
[2021-03-15] MEDS: dexAMETHasone sod phosphate 4 MG/ML VIAL 6 MG IVPUSH (09:08)
[2021-03-15] MEDS: Clopidogrel Bisulfate 75 MG TABLET PO (09:08)
--- NOTE | 2021-03-15 09:29 | P.PNIM_ITS ---
Subjective Subjective Date of Service: 03/15/21 Interval History: ?cc: sob interval history: feeling about the same Cardiovascular Cardiovascular: Reports no additional cardiovascular complaints Gastrointestinal Gastrointestinal: Reports no additional gastrointestinal complaints Physical Exam Vital Signs: Vital Signs: Last Vital Signs Temp 96.7 F L 03/15/21 08:00 Pulse 71 03/15/21 09:07 Resp 20 03/15/21 08:00 BP 160/87 H 03/15/21 09:07 Pulse Ox 94 03/15/21 09:15 BMI result Body Mass Index 31.5 General: AO X 3, no acute distress Resp:? diminsihed bilateral, no accessory muscles used CVS: S1,S2,RRR GI: soft, non tender, non distended Neuro:? motor grossly intact, alert Psych: appropriate affect, appropriate insight? Objective Data Active Medications Acetaminophen (Acetaminophen 325 Mg Tablet) 650 mg PO Q6H PRN PRN Reason: Pain, Mild (Pain Scale 1-3) Amlodipine Besylate (Amlodipine Besylate 10 Mg Tablet) 10 mg PO DAILY [facility]; Protocol Last Admin: 03/15/21 09:07 Dose: 10 mg Documented by: GIA Atorvastatin Calcium (Atorvastatin Calcium 80 Mg Tablet) 80 mg PO DAILY [facility] Last Admin: 03/15/21 09:07 Dose: 80 mg Documented by: GIA Clopidogrel Bisulfate (Clopidogrel Bisulfate 75 Mg Tablet) 75 mg PO DAILY [facility] Last Admin: 03/15/21 09:08 Dose: 75 mg Documented by: GIA Dexamethasone Sodium Phosphate (Dexamethasone Sod Phosphate 4 Mg/Ml Vial) 6 mg IVPUSH DAILY [facility] Last Admin: 03/15/21 09:08 Dose: 6 mg Documented by: GIA Enoxaparin Sodium (Enoxaparin Sodium 40 Mg/0.4 Ml Syringe) 40 mg SUBCUT Q24H [facility] Last Admin: 03/14/21 18:10 Dose: 40 mg Documented by: LISA Melatonin (Melatonin 3 Mg Tablet) 6 mg PO BEDTIME PRN PRN Reason: Insomnia Last Admin: 03/14/21 19:56 Dose: 6 mg Documented by: GELA Metoprolol Tartrate (Metoprolol Tartrate 100 Mg Tablet) 100 mg PO BID [facility]; Protocol Last Admin: 03/15/21 09:07 Dose: 100 mg Documented by: GIA Multivitamins/Vitamin C (Multivitamin Tablet) 1 tab PO DAILY [facility] Last Admin: 03/15/21 09:06 Dose: 1 tab Documented by: GIA Ondansetron HCl (Ondansetron Hcl 4 Mg/2 Ml Vial) 4 mg IVPUSH Q8H PRN PRN Reason: Nausea and Vomiting Last Admin: 03/10/21 21:09 Dose: 4 mg Documented by: GELA Pharmacy Consult (Consult Rx Perform Med Rec) 1 each MISCELLANE ONCE PRN PRN Reason: Consult order Sodium Chloride (0.9 % Sodium Chloride Flush 3 Ml Syringe) 3 ml IVFLUSH QSHIFT [facility] Last Admin: 03/15/21 09:07 Dose: 3 ml Documented by: GIA Labs CBC & Chem 7: 03/15/21 06:22 03/15/21 06:22 Labs: Laboratory Results - last 24 hr 03/15/21 03/15/21 03/15/21 06:22 06:22 06:22 MCV 92.8 MCH 31.3 MCHC 33.7 RDW 12.3 Plt Count 229 MPV 10.4 Absolute Nucleated RBC 0.000 Nucleated RBC % (auto) 0.0 D-Dimer High Sensitivty 420 Anion Gap 12 Estim Creat Clear Calc 102.9 Estimated GFR > 60 Fasting Glucose 151 H Calcium 9.0 Lactate Dehydrogenase 301 H C-Reactive Protein 4.42 H Microbiology Microbiology Results: Microbiology 03/09/21 14:19 Blood Culture - Final Blood - Venous No growth after 5 days. 03/09/21 14:07 Blood Culture - Final Blood - Venous No growth after 5 days. Assessment and Plan (1) COVID-19: Status: Acute Assessment and Plan: 70-year-old male presented with shortness of breath Acute hypoxic respiratory failure secondary to COVID-19 pneumonia Date of symptom onset approximately 03/03/2021 Continue dexamethasone day 7 Wean O2 as tolerated - slight increase in o2 requirements last couple of days, but mostly stable around 10L per minute Monitor prognostic labs Carotid stenosis Plavix, statin Hypertension Amlodipine, Lopressor DVT prophylaxis with Lovenox Quality Stroke Does the patient have a stroke diagnosis?: No VTE Prior VTE?: No VTE Risk Level:: Medical - moderate - high VTE Device Contraindication: Treatment Not Indicated VTE Drug Contraindication: N/A - Med Ordered
--- NOTE | 2021-03-15 15:49 | MHC.CM.PN ---
Male 70 DX Covid+ He continues on 11L O2. He desat today to 78% on AA per nursing. DP home no services. Family will provide transportation. The Pts O2 requirement will need to decrease to 4-5L.
--- NOTE | 2021-03-15 16:35 | W.PM.IDCN ---
History of Present Illness Data of Consult Service Date: 03/15/21 Requesting physician: Sascha Zapien Primary Care Provider: Kami Stephens DO, MD HPI Reason for consult: shortness of breath He presents with shortness of breath for 11 days He has cough He is on 10 liters nasal cannula. Review of Systems Review of Systems: Yes all other systems are reviewed and are negative PMFSH Past Medical History Medical History Carotid stenosis Hypertension Pulsus bigeminus Family History Family history: reviewed and not pertinent Surgical History Surgical History H/O carotid endarterectomy Social History Social History Household Members: Family Housing: House Do you presently have visiting nurse or other home services: No Patient Tobacco Use Status: Former Tobacco user Use of substances other than those prescribed or required for medical reasons: No Currently Displaying Signs/Symptoms of Drug Intoxication Withdrawal: No Have you been hit, kicked, punched, or otherwise hurt by someone within the past year? If so, by whom?: No Do you feel safe in your current relationship?: Yes Is there a partner from a previous relationship who is making you feel unsafe now?: No Are you made to feel afraid or neglected: No Advance Directives: No Advance Directives Information Provided: No Do you have thoughts of harming others: None Do you have a plan to hurt others: No Plan Recently lost weight without trying: No Nutrition Risks: No Nutritional Risk Poor oral hygiene: No service: Yes Current occupational status: retired [employer] Allergies Allergy/AdvReac Type Severity Reaction Status Date / Time No Known Allergies Allergy Unverified 03/09/21 13:01 Active Medications: Current Medications Acetaminophen (Acetaminophen 325 Mg Tablet) 650 mg PO Q6H PRN PRN Reason: Pain, Mild (Pain Scale 1-3) Amlodipine Besylate (Amlodipine Besylate 10 Mg Tablet) 10 mg PO DAILY [facility]; Protocol Last Admin: 03/15/21 09:07 Dose: 10 mg Documented by: Atorvastatin Calcium (Atorvastatin Calcium 80 Mg Tablet) 80 mg PO DAILY [facility] Last Admin: 03/15/21 09:07 Dose: 80 mg Documented by: Clopidogrel Bisulfate (Clopidogrel Bisulfate 75 Mg Tablet) 75 mg PO DAILY [facility] Last Admin: 03/15/21 09:08 Dose: 75 mg Documented by: Dexamethasone Sodium Phosphate (Dexamethasone Sod Phosphate 4 Mg/Ml Vial) 6 mg IVPUSH DAILY [facility] Last Admin: 03/15/21 09:08 Dose: 6 mg Documented by: Enoxaparin Sodium (Enoxaparin Sodium 40 Mg/0.4 Ml Syringe) 40 mg SUBCUT Q24H [facility] Last Admin: 03/14/21 18:10 Dose: 40 mg Documented by: Melatonin (Melatonin 3 Mg Tablet) 6 mg PO BEDTIME PRN PRN Reason: Insomnia Last Admin: 03/14/21 19:56 Dose: 6 mg Documented by: Metoprolol Tartrate (Metoprolol Tartrate 100 Mg Tablet) 100 mg PO BID [facility]; Protocol Last Admin: 03/15/21 09:07 Dose: 100 mg Documented by: Multivitamins/Vitamin C (Multivitamin Tablet) 1 tab PO DAILY [facility] Last Admin: 03/15/21 09:06 Dose: 1 tab Documented by: Ondansetron HCl (Ondansetron Hcl 4 Mg/2 Ml Vial) 4 mg IVPUSH Q8H PRN PRN Reason: Nausea and Vomiting Last Admin: 03/10/21 21:09 Dose: 4 mg Documented by: Pharmacy Consult (Consult Rx Perform Med Rec) 1 each MISCELLANE ONCE PRN PRN Reason: Consult order Sodium Chloride (0.9 % Sodium Chloride Flush 3 Ml Syringe) 3 ml IVFLUSH QSHIFT [facility] Last Admin: 03/15/21 15:28 Dose: 3 ml Documented by: Home Medications Medication Instructions Recorded Confirmed Last Taken Type amlodipine 10 mg tablet 10 mg PO DAILY 03/09/21 03/09/21 Unknown History atorvastatin 80 mg tablet 80 mg PO DAILY 03/09/21 03/09/21 Unknown History clopidogrel 75 mg tablet 75 mg PO DAILY 03/09/21 03/09/21 Unknown History metoprolol tartrate 100 mg tablet 100 mg PO BID 03/09/21 03/09/21 Unknown History multivitamin 1 tab PO DAILY 03/09/21 03/09/21 Unknown History Physical Exam Vital Signs: Vital Signs: Last Vital Signs Temp 96.9 F 03/15/21 14:56 Pulse 69 03/15/21 14:56 Resp 20 03/15/21 14:56 BP 136/71 03/15/21 14:56 Pulse Ox 96 03/15/21 14:56 BMI result Body Mass Index 31.5 Const: General: cooperative Eyes: General: appearance normal, both eyes and all related structures Resp: Effort & Inspection: decreased respiratory effort Cardio: Rate: regular rate Rhythm: regular rhythm GI: Palpation (GI): nontender Extrem: General: Yes normal to inspection Results Labs CBC & Chem 7: 03/15/21 06:22 03/15/21 06:22 Labs: Short CBC 03/15/21 Range/Units 06:22 WBC 10.8 (4.8-10.8) X10*3/uL Hgb 13.0 L (14.0-18.0) g/dl Hct 38.6 L (42.0-52.0) % Plt Count 229 (160-400) X10*3/uL BMP 03/15/21 06:22 Sodium 139 Potassium 4.1 Chloride 104 Carbon Dioxide 27 BUN 24 H Creatinine 0.85 Calcium 9.0 Microbiology Microbiology Results: Microbiology 03/09/21 14:19 Blood - Venous Blood Culture - Final No growth after 5 days. 03/09/21 14:07 Blood - Venous Blood Culture - Final No growth after 5 days. Assessment and Plan (1) Acute respiratory failure with hypoxia: Status: Acute He would not likely benefit due to duration for Remdesivir. He should use Dexamethasone He can use oxygen as indicated Consider baricitinib per Pharmacy if worsens (2) COVID-19: Status: Acute
[2021-03-15] MEDS: Enoxaparin Sodium 40 MG/0.4 ML SYRINGE SUBCUT (18:11)
[2021-03-16] MEDS: 0.9 % Sodium Chloride Flush 3 ML SYRINGE IVFLUSH ×3 (00:37→15:31)
[2021-03-16 03:24] VITALS: BP 146/69; PULSE 64; RESP 17; TEMP 36.7; O2SAT 94
[2021-03-16 07:04] VITALS: BP 136/82; PULSE 58; RESP 20; TEMP 35.8; O2SAT 88
[2021-03-16] MEDS: dexAMETHasone sod phosphate 4 MG/ML VIAL 6 MG IVPUSH (08:54)
[2021-03-16 09:01] VITALS: BP 136/82; PULSE 58
[2021-03-16] MEDS: Atorvastatin Calcium 80 MG TABLET PO (09:01)
[2021-03-16] MEDS: Multivitamin TABLET 1 TAB PO (09:01)
[2021-03-16] MEDS: Metoprolol Tartrate 100 MG TABLET PO ×2 (09:01→20:48)
[2021-03-16] MEDS: Clopidogrel Bisulfate 75 MG TABLET PO (09:01)
[2021-03-16] MEDS: amLODIPine Besylate 10 MG TABLET PO (09:01)
--- NOTE | 2021-03-16 10:09 | P.PNIM_ITS ---
Subjective Subjective Date of Service: 03/16/21 Interval History: cc: sob interval history: feeling about the same Cardiovascular Cardiovascular: Reports no additional cardiovascular complaints Gastrointestinal Gastrointestinal: Reports no additional gastrointestinal complaints Physical Exam Vital Signs: Vital Signs: Last Vital Signs Temp 96.5 F L 03/16/21 07:04 Pulse 58 03/16/21 09:01 Resp 20 03/16/21 07:04 BP 136/82 03/16/21 09:01 Pulse Ox 88 L 03/16/21 07:04 BMI result Body Mass Index 31.5 General: AO X 3, no acute distress Resp:? diminsihed bilateral, no accessory muscles used CVS: S1,S2,RRR GI: soft, non tender, non distended Neuro:? motor grossly intact, alert Psych: appropriate affect, appropriate insight? Objective Data Active Medications Acetaminophen (Acetaminophen 325 Mg Tablet) 650 mg PO Q6H PRN PRN Reason: Pain, Mild (Pain Scale 1-3) Amlodipine Besylate (Amlodipine Besylate 10 Mg Tablet) 10 mg PO DAILY [facility]; Protocol Last Admin: 03/16/21 09:01 Dose: 10 mg Documented by: GIA Atorvastatin Calcium (Atorvastatin Calcium 80 Mg Tablet) 80 mg PO DAILY [facility] Last Admin: 03/16/21 09:01 Dose: 80 mg Documented by: GIA Clopidogrel Bisulfate (Clopidogrel Bisulfate 75 Mg Tablet) 75 mg PO DAILY [facility] Last Admin: 03/16/21 09:01 Dose: 75 mg Documented by: GIA Dexamethasone Sodium Phosphate (Dexamethasone Sod Phosphate 4 Mg/Ml Vial) 6 mg IVPUSH DAILY [facility] Last Admin: 03/16/21 08:54 Dose: 6 mg Documented by: GIA Enoxaparin Sodium (Enoxaparin Sodium 40 Mg/0.4 Ml Syringe) 40 mg SUBCUT Q24H [facility] Last Admin: 03/15/21 18:11 Dose: 40 mg Documented by: RY Melatonin (Melatonin 3 Mg Tablet) 6 mg PO BEDTIME PRN PRN Reason: Insomnia Last Admin: 03/14/21 19:56 Dose: 6 mg Documented by: GELA Metoprolol Tartrate (Metoprolol Tartrate 100 Mg Tablet) 100 mg PO BID [facility]; Protocol Last Admin: 03/16/21 09:01 Dose: 100 mg Documented by: GIA Multivitamins/Vitamin C (Multivitamin Tablet) 1 tab PO DAILY [facility] Last Admin: 03/16/21 09:01 Dose: 1 tab Documented by: GIA Ondansetron HCl (Ondansetron Hcl 4 Mg/2 Ml Vial) 4 mg IVPUSH Q8H PRN PRN Reason: Nausea and Vomiting Last Admin: 03/10/21 21:09 Dose: 4 mg Documented by: GELA Pharmacy Consult (Consult Rx Perform Med Rec) 1 each MISCELLANE ONCE PRN PRN Reason: Consult order Sodium Chloride (0.9 % Sodium Chloride Flush 3 Ml Syringe) 3 ml IVFLUSH QSHIFT [facility] Last Admin: 03/16/21 08:54 Dose: 3 ml Documented by: GIA Labs CBC & Chem 7: 03/15/21 06:22 03/15/21 06:22 Assessment and Plan (1) COVID-19: Status: Acute Assessment and Plan: 70-year-old male presented with shortness of breath Acute hypoxic respiratory failure secondary to COVID-19 pneumonia Date of symptom onset approximately 03/03/2021 Continue dexamethasone day 8 Wean O2 as tolerated - slight increase in o2 requirements last few days, but mostly stable around 10-12L per minute, does well with proning monitor prognostic labs Carotid stenosis Plavix, statin Hypertension Amlodipine, Lopressor DVT prophylaxis with Lovenox Quality Stroke Does the patient have a stroke diagnosis?: No VTE Prior VTE?: No VTE Risk Level:: Medical - moderate - high VTE Device Contraindication: Treatment Not Indicated VTE Drug Contraindication: N/A - Med Ordered
[2021-03-16 11:11] VITALS: BP 133/72; PULSE 71; RESP 20; TEMP 36.6; O2SAT 88
[2021-03-16 15:11] VITALS: BP 156/70; PULSE 73; RESP 18; TEMP 37.1; O2SAT 92
[2021-03-16 19:56] VITALS: BP 121/88; PULSE 80; RESP 17; TEMP 36.6; O2SAT 92
[2021-03-16] MEDS: Enoxaparin Sodium 40 MG/0.4 ML SYRINGE SUBCUT (20:48)
[2021-03-16] MEDS: Acetaminophen 325 MG TABLET 650 MG PO (20:48)
[2021-03-16] MEDS: Melatonin 3 MG TABLET 6 MG PO (20:48)
[2021-03-17] VITALS (8 sets, daily range): BP systolic 111–145; BP diastolic 58–82; PULSE 59–86; RESP 18–20; TEMP 36.1–37; O2SAT 91–95
[2021-03-17] MEDS: 0.9 % Sodium Chloride Flush 3 ML SYRINGE IVFLUSH ×4 (00:41→20:17)
[2021-03-17 06:25] LABS: Hematocrit 37.7 % (42.0-52.0); Hemoglobin 12.8 g/dl (14.0-18.0); Mean Corpuscular Hemoglobin 31.5 pg (27.0-33.0); Mean Corpuscular Volume 92.9 fL (80.0-98.0); Mean Platelet Volume 10.1 fL (9.4-12.4); Platelet Count 234 X10*3/uL (160-400); Red Blood Count 4.06 X10*6/uL (4.60-5.80); Red Cell Distribution Width 12.1 % (11.0-16.0); White Blood Count 9.9 X10*3/uL (4.8-10.8)
[2021-03-17 06:41] LABS: D Dimer High Sensitivity 494 NG/ML
[2021-03-17 06:56] LABS: Anion Gap 10 (12-20); Blood Urea Nitrogen 23 mg/dL (9-16); C Reactive Protein 3.92 mg/dL (< or = 0.50); Calcium 9.2 mg/dL (8.4-10.2); Carbon Dioxide 32 mmol/L (22-29); Chloride 100 mmol/L (96-108); Estimated Glomerular Filt Rate > 60; Glucose Fasting 164 mg/dL (60-99); Lactate Dehydrogenase 279 U/L (118-273); Magnesium 2.2 mg/dL (1.6-2.6); Potassium 4.3 mmol/L (3.3-5.1); Sodium 138 mmol/L (135-145)
[2021-03-17] MEDS: amLODIPine Besylate 10 MG TABLET PO (08:56)
[2021-03-17] MEDS: Multivitamin TABLET 1 TAB PO (08:56)
[2021-03-17] MEDS: Clopidogrel Bisulfate 75 MG TABLET PO (08:56)
[2021-03-17] MEDS: dexAMETHasone sod phosphate 4 MG/ML VIAL 6 MG IVPUSH (08:56)
[2021-03-17] MEDS: Atorvastatin Calcium 80 MG TABLET PO (08:56)
[2021-03-17] MEDS: Metoprolol Tartrate 100 MG TABLET PO ×2 (08:56→20:16)
[2021-03-17] MEDS: Docusate Sodium 100 MG CAPSULE PO ×2 (11:15→20:16)
--- NOTE | 2021-03-17 12:41 | HO.PM.IMPN ---
Subjective Subjective Date of Service: 03/17/21 Interval History: the patient was seen and evaluated this morning Laying in bed, feels weakness but still requiring 11 L of oxygen reporting dyspnea with minimal exertion Constipation Noted to have drop in heart rate to 30s at nighttime, asymptomatic No reported other overnight events. Review of Systems feels generalized weakness and decreased appetite No chest pain, palpitation Dyspnea on exertion No abdominal pain, nausea or vomiting No urinary symptoms No any rash or wounds Physical Exam Vital Signs: Vital Signs: Last Vital Signs Temp 97.2 F 03/17/21 11:59 Pulse 71 03/17/21 11:59 Resp 20 03/17/21 11:59 BP 119/69 03/17/21 11:59 Pulse Ox 92 03/17/21 11:59 BMI result Body Mass Index 31.5 Const: Other: Constitutional : Alert, oriented, in mild respiratory distress Neck : Normal inspection, Supple Cardiovascular : no she BP elevation, no lower extremity edema, Respiratory : Chest wall moving bilaterally, tachypnea, in mild as with distress on oxygen supplement Gastrointestinal: soft, lax, Normal bowel sounds, Non tender Skin : Warm, Dry Neurological : Alert & oriented x3, No focal deficit Objective Data Active Medications Acetaminophen (Acetaminophen 325 Mg Tablet) 650 mg PO Q6H PRN PRN Reason: Pain, Mild (Pain Scale 1-3) Last Admin: 03/16/21 20:48 Dose: 650 mg Documented by: CHELY Amlodipine Besylate (Amlodipine Besylate 10 Mg Tablet) 10 mg PO DAILY [facility]; Protocol Last Admin: 03/17/21 08:56 Dose: 10 mg Documented by: MARIA L Atorvastatin Calcium (Atorvastatin Calcium 80 Mg Tablet) 80 mg PO DAILY [facility] Last Admin: 03/17/21 08:56 Dose: 80 mg Documented by: MARIA L Clopidogrel Bisulfate (Clopidogrel Bisulfate 75 Mg Tablet) 75 mg PO DAILY [facility] Last Admin: 03/17/21 08:56 Dose: 75 mg Documented by: MARIA L Dexamethasone Sodium Phosphate (Dexamethasone Sod Phosphate 4 Mg/Ml Vial) 6 mg IVPUSH DAILY [facility] Last Admin: 03/17/21 08:56 Dose: 6 mg Documented by: MARIA L Docusate Sodium (Docusate Sodium 100 Mg Capsule) 100 mg PO BID [facility] Last Admin: 03/17/21 11:15 Dose: 100 mg Documented by: MARIA L Enoxaparin Sodium (Enoxaparin Sodium 40 Mg/0.4 Ml Syringe) 40 mg SUBCUT Q24H [facility] Last Admin: 03/16/21 20:48 Dose: 40 mg Documented by: CHELY Melatonin (Melatonin 3 Mg Tablet) 6 mg PO BEDTIME PRN PRN Reason: Insomnia Last Admin: 03/16/21 20:48 Dose: 6 mg Documented by: CHELY Metoprolol Tartrate (Metoprolol Tartrate 100 Mg Tablet) 100 mg PO BID [facility]; Protocol Last Admin: 03/17/21 08:56 Dose: 100 mg Documented by: MARIA L Multivitamins/Vitamin C (Multivitamin Tablet) 1 tab PO DAILY [facility] Last Admin: 03/17/21 08:56 Dose: 1 tab Documented by: MARIA L Ondansetron HCl (Ondansetron Hcl 4 Mg/2 Ml Vial) 4 mg IVPUSH Q8H PRN PRN Reason: Nausea and Vomiting Last Admin: 03/10/21 21:09 Dose: 4 mg Documented by: GELA Pharmacy Consult (Consult Rx Perform Med Rec) 1 each MISCELLANE ONCE PRN PRN Reason: Consult order Sodium Chloride (0.9 % Sodium Chloride Flush 3 Ml Syringe) 3 ml IVFLUSH QSHIFT [facility] Last Admin: 03/17/21 08:56 Dose: 3 ml Documented by: MARIA L Labs CBC & Chem 7: 03/17/21 06:02 03/17/21 06:02 Labs: Laboratory Results - last 24 hr 03/17/21 03/17/21 03/17/21 06:02 06:02 06:02 MCV 92.9 MCH 31.5 MCHC 34.0 RDW 12.1 Plt Count 234 MPV 10.1 Absolute Nucleated RBC 0.000 Nucleated RBC % (auto) 0.0 D-Dimer High Sensitivty 494 Anion Gap 10 L Estim Creat Clear Calc 95.0 Estimated GFR > 60 Fasting Glucose 164 H Calcium 9.2 Magnesium 2.2 Lactate Dehydrogenase 279 H C-Reactive Protein 3.92 H Assessment and Plan (1) Acute respiratory failure with hypoxia: Status: Acute (2) COVID-19: Status: Acute Assessment and Plan: A 70 years old male with hypertension as PMH presents to the hospital with complaint of worsening shortness of breath for the last 5 days. Acute hypoxic respiratory failure COVID-19 infection continue dexamethasone 6 mg daily 09/26 Oxygen supplement, to wean down as tolerated ID input appreciated, continue current measurement Wean down oxygen as tolerated constipation Start MiraLax and Colace DVT PPX Lovenox Quality Stroke Does the patient have a stroke diagnosis?: No VTE Prior VTE?: No VTE Risk Level:: Medical - moderate - high VTE Device Contraindication: Treatment Not Indicated VTE Drug Contraindication: N/A - Med Ordered
[2021-03-17] MEDS: Enoxaparin Sodium 40 MG/0.4 ML SYRINGE SUBCUT (20:17)
[2021-03-18] VITALS (7 sets, daily range): BP systolic 118–144; BP diastolic 56–78; PULSE 62–114; RESP 16–18; TEMP 35.6–37.2; O2SAT 90–98
[2021-03-18 06:49] LABS: C Reactive Protein 2.05 mg/dL (< or = 0.50); Lactate Dehydrogenase 262 U/L (118-273)
[2021-03-18 06:52] LABS: Hematocrit 37.2 % (42.0-52.0); Hemoglobin 12.6 g/dl (14.0-18.0); Mean Corpuscular HGB Conc 33.9 g/dl (31.0-36.0); Mean Corpuscular Hemoglobin 31.4 pg (27.0-33.0); Mean Corpuscular Volume 92.8 fL (80.0-98.0); Mean Platelet Volume 10.4 fL (9.4-12.4); Platelet Count 245 X10*3/uL (160-400); Red Blood Count 4.01 X10*6/uL (4.60-5.80); Red Cell Distribution Width 12.2 % (11.0-16.0); White Blood Count 12.4 X10*3/uL (4.8-10.8)
[2021-03-18 06:53] LABS: Anion Gap 10 (12-20); Blood Urea Nitrogen 21 mg/dL (9-16); Carbon Dioxide 33 mmol/L (22-29); Chloride 100 mmol/L (96-108); Creatinine Clr Calc Pharmacy 88.3; Estimated Glomerular Filt Rate > 60; Glucose Random 173 mg/dL (60-115); Potassium 5.4 mmol/L (3.3-5.1); Sodium 138 mmol/L (135-145)
[2021-03-18] MEDS: dexAMETHasone sod phosphate 4 MG/ML VIAL 6 MG IVPUSH (10:47)
[2021-03-18] MEDS: Metoprolol Tartrate 100 MG TABLET PO ×2 (10:47→21:54)
[2021-03-18] MEDS: Sodium Zirconium Cyclosilicate 5 GM POWD.PACK PO (10:47)
[2021-03-18] MEDS: Multivitamin TABLET 1 TAB PO (10:48)
[2021-03-18] MEDS: Clopidogrel Bisulfate 75 MG TABLET PO (10:48)
[2021-03-18] MEDS: polyethylene glycoL 3350 17 GM POWD.PACK PO (10:48)
[2021-03-18] MEDS: guaiFENesin LA 600 MG TAB.ER.12H PO ×4 (10:48→21:55)
[2021-03-18] MEDS: Docusate Sodium 100 MG CAPSULE PO ×2 (10:48→21:53)
[2021-03-18] MEDS: Atorvastatin Calcium 80 MG TABLET PO (10:48)
[2021-03-18] MEDS: amLODIPine Besylate 10 MG TABLET PO (10:48)
[2021-03-18] MEDS: 0.9 % Sodium Chloride Flush 3 ML SYRINGE IVFLUSH ×3 (10:49→21:56)
--- NOTE | 2021-03-18 12:02 | P.PNIM_ITS ---
Subjective Subjective Date of Service: 03/18/21 Interval History: the patient was seen and evaluated this morning Laying in bed, feels weakness but still requiring 11 L of oxygen reporting dyspnea with minimal exertion Constipation, had small bowel movement develops bradycardia at nighttime, asymptomatic No reported other overnight events. Review of Systems feels generalized weakness and decreased appetite No chest pain, palpitation Dyspnea on exertion No abdominal pain, nausea or vomiting No urinary symptoms No any rash or wounds Physical Exam Vital Signs: Vital Signs: Last Vital Signs Temp 98.9 F 03/18/21 11:50 Pulse 89 03/18/21 11:50 Resp 18 03/18/21 11:50 BP 125/78 03/18/21 11:50 Pulse Ox 90 L 03/18/21 11:50 BMI result Body Mass Index 31.5 Const: Other: Constitutional : Alert, oriented, in mild respiratory distress Neck : Normal inspection, Supple Cardiovascular : no she BP elevation, no lower extremity edema, Respiratory : Chest wall moving bilaterally, tachypnea, in mild as with di stress on oxygen supplement Gastrointestinal: soft, lax, Normal bowel sounds, Non tender Skin : Warm, Dry Neurological : Alert & oriented x3, No focal deficit Objective Data Active Medications Acetaminophen (Acetaminophen 325 Mg Tablet) 650 mg PO Q6H PRN PRN Reason: Pain, Mild (Pain Scale 1-3) Last Admin: 03/16/21 20:48 Dose: 650 mg Documented by: CHELY Amlodipine Besylate (Amlodipine Besylate 10 Mg Tablet) 10 mg PO DAILY [facility]; Protocol Last Admin: 03/18/21 10:48 Dose: 10 mg Documented by: LOPEZ Atorvastatin Calcium (Atorvastatin Calcium 80 Mg Tablet) 80 mg PO DAILY [facility] Last Admin: 03/18/21 10:48 Dose: 80 mg Documented by: LOPEZ Clopidogrel Bisulfate (Clopidogrel Bisulfate 75 Mg Tablet) 75 mg PO DAILY [facility] Last Admin: 03/18/21 10:48 Dose: 75 mg Documented by: LOPEZ Dexamethasone Sodium Phosphate (Dexamethasone Sod Phosphate 4 Mg/Ml Vial) 6 mg IVPUSH DAILY [facility] Last Admin: 03/18/21 10:47 Dose: 6 mg Documented by: LOPEZ Docusate Sodium (Docusate Sodium 100 Mg Capsule) 100 mg PO BID [facility] Last Admin: 03/18/21 10:48 Dose: 100 mg Documented by: LOPEZ Enoxaparin Sodium (Enoxaparin Sodium 40 Mg/0.4 Ml Syringe) 40 mg SUBCUT Q24H [facility] Last Admin: 03/17/21 20:17 Dose: 40 mg Documented by: PANCHO Guaifenesin (Guaifenesin La 600 Mg Tab.Er.12h) 600 mg PO BID [facility] Last Admin: 03/18/21 10:48 Dose: 600 mg Documented by: LOPEZ Melatonin (Melatonin 3 Mg Tablet) 6 mg PO BEDTIME PRN PRN Reason: Insomnia Last Admin: 03/16/21 20:48 Dose: 6 mg Documented by: CHELY Metoprolol Tartrate (Metoprolol Tartrate 100 Mg Tablet) 100 mg PO BID [facility]; Protocol Last Admin: 03/18/21 10:47 Dose: 100 mg Documented by: LOPEZ Multivitamins/Vitamin C (Multivitamin Tablet) 1 tab PO DAILY [facility] Last Admin: 03/18/21 10:48 Dose: 1 tab Documented by: LOPEZ Ondansetron HCl (Ondansetron Hcl 4 Mg/2 Ml Vial) 4 mg IVPUSH Q8H PRN PRN Reason: Nausea and Vomiting Last Admin: 03/10/21 21:09 Dose: 4 mg Documented by: GELA Pharmacy Consult (Consult Rx Perform Med Rec) 1 each MISCELLANE ONCE PRN PRN Reason: Consult order Sodium Chloride (0.9 % Sodium Chloride Flush 3 Ml Syringe) 3 ml IVFLUSH QSHIFT [facility] Last Admin: 03/18/21 10:49 Dose: 3 ml Documented by: LOPEZ Labs CBC & Chem 7: 03/18/21 06:04 03/18/21 06:04 Labs: Laboratory Results - last 24 hr 03/18/21 03/18/21 03/18/21 06:04 06:04 06:04 MCV 92.8 MCH 31.4 MCHC 33.9 RDW 12.2 Plt Count 245 MPV 10.4 Absolute Nucleated RBC 0.000 Nucleated RBC % (auto) 0.0 Anion Gap 10 L Estim Creat Clear Calc 88.3 Estimated GFR > 60 Random Glucose 173 H Calcium 9.0 Lactate Dehydrogenase 262 C-Reactive Protein 2.05 H Assessment and Plan (1) Acute respiratory failure with hypoxia: Status: Acute (2) COVID-19: Status: Acute Assessment and Plan: A 70 years old male with hypertension as PMH presents to the hospital with complaint of worsening shortness of breath for the last 5 days. Acute hypoxic respiratory failure COVID-19 infection continue dexamethasone 6 mg daily 8/10 Oxygen supplement, to wean down as tolerated ID input appreciated, continue current measurement start incentive spirometry Start Mucinex Wean down oxygen as tolerated constipation Continue MiraLax and Colace DVT PPX Lovenox Quality Stroke Does the patient have a stroke diagnosis?: No VTE Prior VTE?: No VTE Risk Level:: Medical - moderate - high VTE Device Contraindication: Treatment Not Indicated VTE Drug Contraindication: N/A - Med Ordered
[2021-03-18] MEDS: Enoxaparin Sodium 40 MG/0.4 ML SYRINGE SUBCUT (21:55)
[2021-03-19] VITALS (10 sets, daily range): BP systolic 128–168; BP diastolic 60–94; PULSE 50–87; RESP 15–22; TEMP 36.4–37; O2SAT 89–97
[2021-03-19 06:40] LABS: Hematocrit 38.4 % (42.0-52.0); Mean Corpuscular HGB Conc 33.9 g/dl (31.0-36.0); Mean Corpuscular Hemoglobin 31.5 pg (27.0-33.0); Mean Platelet Volume 10.2 fL (9.4-12.4); Platelet Count 256 X10*3/uL (160-400); Red Blood Count 4.13 X10*6/uL (4.60-5.80); Red Cell Distribution Width 12.2 % (11.0-16.0); White Blood Count 14.1 X10*3/uL (4.8-10.8)
[2021-03-19 07:19] LABS: Anion Gap 11 (12-20); Blood Urea Nitrogen 23 mg/dL (9-16); Calcium 8.6 mg/dL (8.4-10.2); Carbon Dioxide 29 mmol/L (22-29); Chloride 102 mmol/L (96-108); Creatinine Clr Calc Pharmacy 97.2; Estimated Glomerular Filt Rate > 60; Glucose Random 184 mg/dL (60-115); Potassium 4.1 mmol/L (3.3-5.1); Sodium 138 mmol/L (135-145)
[2021-03-19] MEDS: dexAMETHasone sod phosphate 4 MG/ML VIAL 6 MG IVPUSH (08:36)
[2021-03-19] MEDS: 0.9 % Sodium Chloride Flush 3 ML SYRINGE IVFLUSH ×3 (08:39→21:17)
[2021-03-19] MEDS: Atorvastatin Calcium 80 MG TABLET PO (08:40)
[2021-03-19] MEDS: Multivitamin TABLET 1 TAB PO (08:40)
[2021-03-19] MEDS: guaiFENesin LA 600 MG TAB.ER.12H PO ×2 (08:40→21:16)
[2021-03-19] MEDS: Clopidogrel Bisulfate 75 MG TABLET PO (08:40)
[2021-03-19] MEDS: amLODIPine Besylate 10 MG TABLET PO (08:40)
--- NOTE | 2021-03-19 13:43 | P.PNIM_ITS ---
Subjective Subjective Date of Service: 03/19/21 Interval History: the patient was seen and evaluated this morning Laying in bed, feels some improvement with decreased oxygen requirement to 4 L improvement in dyspnea with exertion had small bowel movement develops bradycardia at nighttime, asymptomatic No reported other overnight events. Review of Systems improved weakness and decreased appetite No chest pain, palpitation Dyspnea on exertion No abdominal pain, nausea or vomiting No urinary symptoms No any rash or wounds Physical Exam Vital Signs: Vital Signs: Last Vital Signs Temp 97.6 F 03/19/21 11:44 Pulse 78 03/19/21 11:44 Resp 22 H 03/19/21 11:44 BP 131/80 03/19/21 11:44 Pulse Ox 90 L 03/19/21 11:44 BMI result Body Mass Index 31.5 Const: Other: Constitutional : Alert, oriented, not and distress Neck : Normal inspection, Supple Cardiovascular : no she BP elevation, no lower extremity edema, Respiratory : Chest wall moving bilaterally, tachypnea, not an distress on oxygen supplement Gastrointestinal: soft, lax, Normal bowel sounds, Non tender Skin : Warm, Dry Neurological : Alert & oriented x3, No focal deficit Objective Data Active Medications Acetaminophen (Acetaminophen 325 Mg Tablet) 650 mg PO Q6H PRN PRN Reason: Pain, Mild (Pain Scale 1-3) Last Admin: 03/16/21 20:48 Dose: 650 mg Documented by: CHELY Amlodipine Besylate (Amlodipine Besylate 10 Mg Tablet) 10 mg PO DAILY [facility]; P rotocol Last Admin: 03/19/21 08:40 Dose: 10 mg Documented by: GIA Atorvastatin Calcium (Atorvastatin Calcium 80 Mg Tablet) 80 mg PO DAILY [facility] [place] Last Admin: 03/19/21 08:40 Dose: 80 mg Documented by: GIA Clopidogrel Bisulfate (Clopidogrel Bisulfate 75 Mg Tablet) 75 mg PO DAILY [facility] [place] Last Admin: 03/19/21 08:40 Dose: 75 mg Documented by: GIA Dexamethasone Sodium Phosphate (Dexamethasone Sod Phosphate 4 Mg/Ml Vial) 6 mg IVPUSH DAILY [facility] [place] Last Admin: 03/19/21 08:36 Dose: 6 mg Documented by: GIA Docusate Sodium (Docusate Sodium 100 Mg Capsule) 100 mg PO BID [facility] [place] Last Admin: 03/19/21 08:42 Dose: Not Given Documented by: GIA Non-Admin Reason: loose large stool last night. Enoxaparin Sodium (Enoxaparin Sodium 40 Mg/0.4 Ml Syringe) 40 mg SUBCUT Q24H [facility] [place] Last Admin: 03/18/21 21:55 Dose: 40 mg Documented by: LEONOR Guaifenesin (Guaifenesin La 600 Mg Tab.Er.12h) 600 mg PO BID [facility] [place] Last Admin: 03/19/21 08:40 Dose: 600 mg Documented by: GIA Guaifenesin (Guaifenesin La 600 Mg Tab.Er.12h) 600 mg PO BID [facility] [place] Last Admin: 03/19/21 08:40 Dose: Not Given Documented by: GIA Non-Admin Reason: Duplicate Order Melatonin (Melatonin 3 Mg Tablet) 6 mg PO BEDTIME PRN PRN Reason: Insomnia Last Admin: 03/16/21 20:48 Dose: 6 mg Documented by: CHELY Metoprolol Tartrate (Metoprolol Tartrate 100 Mg Tablet) 100 mg PO BID [facility] [place]; Protocol Last Admin: 03/19/21 08:40 Dose: Not Given Documented by: GIA Non-Admin Reason: HR 50 Multivitamins/Vitamin C (Multivitamin Tablet) 1 tab PO DAILY [facility] [place] Last Admin: 03/19/21 08:40 Dose: 1 tab Documented by: GIA Ondansetron HCl (Ondansetron Hcl 4 Mg/2 Ml Vial) 4 mg IVPUSH Q8H PRN PRN Reason: Nausea and Vomiting Last Admin: 03/10/21 21:09 Dose: 4 mg Documented by: GELA Pharmacy Consult (Consult Rx Perform Med Rec) 1 each MISCELLANE ONCE PRN PRN Reason: Consult order Sodium Chloride (0.9 % Sodium Chloride Flush 3 Ml Syringe) 3 ml IVFLUSH QSHIFT [facility] Last Admin: 03/19/21 08:39 Dose: 3 ml Documented by: GIA Labs CBC & Chem 7: 03/19/21 05:48 03/19/21 05:48 Labs: Laboratory Results - last 24 hr 03/19/21 03/19/21 05:48 05:48 MCV 93.0 MCH 31.5 MCHC 33.9 RDW 12.2 Plt Count 256 MPV 10.2 Absolute Nucleated RBC 0.000 Nucleated RBC % (auto) 0.0 Anion Gap 11 L Estim Creat Clear Calc 97.2 Estimated GFR > 60 Random Glucose 184 H Calcium 8.6 Assessment and Plan (1) Acute respiratory failure with hypoxia: Status: Acute (2) COVID-19: Status: Acute Assessment and Plan: A 70 years old male with hypertension as PMH presents to the hospital with complaint of worsening shortness of breath for the last 5 days. Acute hypoxic respiratory failure COVID-19 infection continue dexamethasone 6 mg daily 9/10 Oxygen supplement, to wean down as tolerated ID input appreciated, continue current measurement continue incentive spirometry continue Mucinex Wean down oxygen as tolerated constipation Continue MiraLax and Colace DVT PPX Lovenox Quality Stroke Does the patient have a stroke diagnosis?: No VTE Prior VTE?: No VTE Risk Level:: Medical - moderate - high VTE Device Contraindication: Treatment Not Indicated VTE Drug Contraindication: N/A - Med Ordered
--- NOTE | 2021-03-19 16:07 | PC.NURSE ---
report given to Tanna UMAÑA to assume care
[2021-03-19] MEDS: Enoxaparin Sodium 40 MG/0.4 ML SYRINGE SUBCUT (21:16)
[2021-03-19] MEDS: Metoprolol Tartrate 100 MG TABLET PO (21:16)
[2021-03-20] VITALS (10 sets, daily range): BP systolic 106–163; BP diastolic 59–82; PULSE 60–89; RESP 18–20; TEMP 36.2–37.3; O2SAT 88–97
[2021-03-20] MEDS: Atorvastatin Calcium 80 MG TABLET PO (09:03)
[2021-03-20] MEDS: dexAMETHasone sod phosphate 4 MG/ML VIAL 6 MG IVPUSH (09:03)
[2021-03-20] MEDS: Docusate Sodium 100 MG CAPSULE PO ×2 (09:03→20:03)
[2021-03-20] MEDS: Clopidogrel Bisulfate 75 MG TABLET PO (09:03)
[2021-03-20] MEDS: amLODIPine Besylate 10 MG TABLET PO (09:04)
[2021-03-20] MEDS: Multivitamin TABLET 1 TAB PO (09:04)
[2021-03-20] MEDS: guaiFENesin LA 600 MG TAB.ER.12H PO ×2 (09:04→20:03)
[2021-03-20] MEDS: Metoprolol Tartrate 100 MG TABLET PO ×2 (09:05→20:03)
[2021-03-20] MEDS: 0.9 % Sodium Chloride Flush 3 ML SYRINGE IVFLUSH ×3 (09:05→20:05)
--- NOTE | 2021-03-20 11:15 | P.PNIM_ITS ---
Subjective Subjective Date of Service: 03/20/21 Interval History: The patient was seen and evaluated this morning Laying in bed, feels some improvement with decreased oxygen requirement to 4 L improvement in dyspnea with exertion failed home O2 test, dropped to 81% on room air develops bradycardia at nighttime, asymptomatic No reported other overnight events. Review of Systems improved weakness and decreased appetite No chest pain, palpitation Dyspnea on exertion No abdominal pain, nausea or vomiting No urinary symptoms No any rash or wounds Physical Exam Vital Signs: Vital Signs: Last Vital Signs Temp 98.8 F 03/20/21 07:45 Pulse 60 03/20/21 09:05 Resp 18 03/20/21 07:45 BP 106/60 03/20/21 09:05 Pulse Ox 96 03/20/21 07:45 BMI result Body Mass Index 31.5 Const: Other: Constitutional : Alert, oriented, not and distress Neck : Normal inspection, Supple Cardiovascular : no she BP elevation, no lower extremity edema, Respiratory : Chest wall moving bilaterally, tachypnea, not an distress on oxygen supplement Gastrointestinal: soft, lax, Normal bowel sounds, Non tender Skin : Warm, Dry Neurological : Alert & oriented x3, No focal deficit Objective Data Active Medications Acetaminophen (Acetaminophen 325 Mg Tablet) 650 mg PO Q6H PRN PRN Reason: Pain, Mild (Pain Scale 1-3) Last Admin: 03/16/21 20:48 Dose: 650 mg Documented by: CHELY Amlodipine Besylate (Amlodipine Besylate 10 Mg Tablet) 10 mg PO DAILY [facility]; Protocol Last Admin: 03/20/21 09:04 Dose: 10 mg Documented by: GUERRERO Atorvastatin Calcium (Atorvastatin Calcium 80 Mg Tablet) 80 mg PO DAILY [facility] Last Admin: 03/20/21 09:03 Dose: 80 mg Documented by: GUERRERO Clopidogrel Bisulfate (Clopidogrel Bisulfate 75 Mg Tablet) 75 mg PO DAILY [facility] Last Admin: 03/20/21 09:03 Dose: 75 mg Documented by: GUERRERO Dexamethasone Sodium Phosphate (Dexamethasone Sod Phosphate 4 Mg/Ml Vial) 6 mg IVPUSH DAILY [facility] Last Admin: 03/20/21 09:03 Dose: 6 mg Documented by: GUERRERO Docusate Sodium (Docusate Sodium 100 Mg Capsule) 100 mg PO BID [facility] Last Admin: 03/20/21 09:03 Dose: 100 mg Documented by: GUERRERO Enoxaparin Sodium (Enoxaparin Sodium 40 Mg/0.4 Ml Syringe) 40 mg SUBCUT Q24H [facility] Last Admin: 03/19/21 21:16 Dose: 40 mg Documented by: ROSARIO Guaifenesin (Guaifenesin La 600 Mg Tab.Er.12h) 600 mg PO BID [facility] Last Admin: 03/20/21 09:04 Dose: 600 mg Documented by: GUERRERO Guaifenesin (Guaifenesin La 600 Mg Tab.Er.12h) 600 mg PO BID [facility] Last Admin: 03/20/21 09:04 Dose: Not Given Documented by: GUERRERO Non-Admin Reason: Duplicate Order Melatonin (Melatonin 3 Mg Tablet) 6 mg PO BEDTIME PRN PRN Reason: Insomnia Last Admin: 03/16/21 20:48 Dose: 6 mg Documented by: CHELY Metoprolol Tartrate (Metoprolol Tartrate 100 Mg Tablet) 100 mg PO BID [facility]; Protocol Last Admin: 03/20/21 09:05 Dose: 100 mg Documented by: GUERRERO Multivitamins/Vitamin C (Multivitamin Tablet) 1 tab PO DAILY [facility] Last Admin: 03/20/21 09:04 Dose: 1 tab Documented by: GUERRERO Ondansetron HCl (Ondansetron Hcl 4 Mg/2 Ml Vial) 4 mg IVPUSH Q8H PRN PRN Reason: Nausea and Vomiting Last Admin: 03/10/21 21:09 Dose: 4 mg Documented by: GELA Pharmacy Consult (Consult Rx Perform Med Rec) 1 each MISCELLANE ONCE PRN PRN Reason: Consult order Sodium Chloride (0.9 % Sodium Chloride Flush 3 Ml Syringe) 3 ml IVFLUSH QSHIFT [facility] Last Admin: 03/20/21 09:05 Dose: 3 ml Documented by: GUERRERO Labs CBC & Chem 7: 03/19/21 05:48 03/19/21 05:48 Assessment and Plan (1) Acute respiratory failure with hypoxia: Status: Acute (2) COVID-19: Status: Acute Assessment and Plan: A 70 years old male with hypertension as PMH presents to the hospital with complaint of worsening shortness of breath for the last 5 days. Acute hypoxic respiratory failure COVID-19 infection continue dexamethasone 6 mg daily 10/10 Oxygen supplement, to wean down as tolerated failed home O2 eval, to try again tomorrow ID input appreciated, continue current measurement continue incentive spirometry continue Mucinex Wean down oxygen as tolerated constipation Continue MiraLax and Colace DVT PPX Lovenox Quality Stroke Does the patient have a stroke diagnosis?: No VTE Prior VTE?: No VTE Risk Level:: Medical - moderate - high VTE Device Contraindication: Treatment Not Indicated VTE Drug Contraindication: N/A - Med Ordered
[2021-03-20] MEDS: Melatonin 3 MG TABLET 6 MG PO (20:02)
[2021-03-20] MEDS: Enoxaparin Sodium 40 MG/0.4 ML SYRINGE SUBCUT (20:04)
[2021-03-21 02:30] VITALS: BP 110/56; PULSE 48; RESP 18; TEMP 36.2; O2SAT 96
[2021-03-21 05:44] LABS: Anion Gap 11 (12-20); Blood Urea Nitrogen 26 mg/dL (9-16); Calcium 8.6 mg/dL (8.4-10.2); Carbon Dioxide 29 mmol/L (22-29); Chloride 103 mmol/L (96-108); Creatinine Clr Calc Pharmacy 78.8; Estimated Glomerular Filt Rate > 60; Glucose Random 238 mg/dL (60-115); Potassium 4.6 mmol/L (3.3-5.1); Sodium 138 mmol/L (135-145)
[2021-03-21 08:00] VITALS: BP 149/78; PULSE 72; RESP 20; TEMP 36.1; O2SAT 87
[2021-03-21 08:37] VITALS: BP 149/78; PULSE 72
[2021-03-21] MEDS: Metoprolol Tartrate 100 MG TABLET PO (08:37)
[2021-03-21] MEDS: Atorvastatin Calcium 80 MG TABLET PO (08:37)
[2021-03-21] MEDS: guaiFENesin LA 600 MG TAB.ER.12H PO (08:37)
[2021-03-21] MEDS: amLODIPine Besylate 10 MG TABLET PO (08:37)
[2021-03-21] MEDS: Docusate Sodium 100 MG CAPSULE PO (08:37)
[2021-03-21] MEDS: dexAMETHasone sod phosphate 4 MG/ML VIAL 6 MG IVPUSH (08:37)
[2021-03-21] MEDS: 0.9 % Sodium Chloride Flush 3 ML SYRINGE IVFLUSH (08:38)
[2021-03-21] MEDS: Clopidogrel Bisulfate 75 MG TABLET PO (08:38)
[2021-03-21] MEDS: Multivitamin TABLET 1 TAB PO (08:38)
--- NOTE | 2021-03-21 10:26 | PM.DS ---
DS: Providers Provider Date of Service: 03/21/21 Date of admission: 03/09/21 15:37 Primary care physician: Kami Stephens DO, MD Consults: 03/09/21 15:37 Consult to Infectious Diseases Routine Consulting Provider: Maddy Martinez Reason for consultation: COVID-19 with hypoxia DS: Diagnosis Discharge Diagnosis (1) Acute respiratory failure with hypoxia: Status: Acute (2) COVID-19: Status: Acute (3) Carotid stenosis: Status: Acute DS: Summary Hospital Course Hospital Course: Admission note HPI A 70 years old male with hypertension as PMH presents to the hospital with complaint of worsening shortness of breath for the last 5 days.? He reported that symptoms started almost 1 week to 5 days ago with runny nose and upper respiratory tract symptoms and worsened over the last few days on up until today when he climbs stairs and felt severe shortness of breath and lethargy.? He came to the hospital for further evaluation and treatment.? Denies any chest pain, nausea, vomiting, abdominal pain or urinary symptoms. The emergency found to be hypoxic on room ai to 88% Admitted for further evaluation and treatment. Hospital course Patient was admitted to the hospital for hypoxemia treated with IV steroids of dexamethasone for total of 10 days and oxygen supplement she was weaned down during the hospital stay as tolerated. Patient evaluated for home oxygen at the time of discharge. to resume his home medication at time of discharge. No new medication prescribed during the hospital stay. To follow-up with Primary care as scheduled Time Spent with Patient Time attestation: Total time spent providing and/or coordinating discharge services: Discharge coordination time: Greater than 30 minutes Quality: Stroke Does the patient have a stroke diagnosis?: No Physical Exam Vital Signs: Vital Signs: Last Vital Signs Temp 96.9 F 03/21/21 08:00 Pulse 72 03/21/21 08:37 Resp 20 03/21/21 08:00 BP 149/78 H 03/21/21 08:37 Pulse Ox 87 L 03/21/21 08:00 BMI result Body Mass Index 31.5 Const: Other: Constitutional : Alert, oriented, not and distress Neck : Normal inspection, Supple Cardiovascular : no she BP elevation, no lower extremity edema, Respiratory : Chest wall moving bilaterally, tachypnea, not an distress Gastrointestinal: soft, lax, Normal bowel sounds, Non tender Skin : Warm, Dry Neurological : Alert & oriented x3, No focal deficit DS: Data Data Completed and Pending Labs on day of discharge: Laboratory Results - last 24 hr 03/21/21 05:02 Sodium 138 Potassium 4.6 Chloride 103 Carbon Dioxide 29 Anion Gap 11 L BUN 26 H Creatinine 1.11 Estim Creat Clear Calc 78.8 Estimated GFR > 60 Random Glucose 238 H Calcium 8.6 Discharge Plan Discharge Patient Disposition: Home, Self-Care Discharge Diagnosis: COVID-19 infection Referrals: Kami Stephens DO, MD [Primary Care Provider] - 1 Week Discharge Medications: Continued multivitamin Tablet 1 tab PO DAILY RF: 0 atorvastatin 80 mg Tablet 80 mg PO DAILY RF: 0 metoprolol tartrate 100 mg Tablet 100 mg PO BID RF: 0 clopidogrel 75 mg Tablet 75 mg PO DAILY RF: 0 amlodipine 10 mg Tablet 10 mg PO DAILY RF: 0 Discharge Orders: Discharge Order (Routine); Ordered 03/21/21 Ordered By: Emre Sanford Diet: advance to usual diet Activity on Discharge: As tolerated Stand Alone Forms: Patient Portal Discharge page Care Plan Goals: Read below Health Concerns: Read below Plan of Treatment: Read below Assessment: you were admitted to the hospital for evaluation of COVID-19 infection. Treated with IV steroids, antiviral medication and oxygen supplement which was weaned down as tolerated until the day of discharge. You finish the treatment for COVID-19 while in the hospital. Continue with cough medication as needed and to use the incentive spirometry at home. Discharge Date/Time: 03/21/21 12:52
--- NOTE | 2021-03-21 10:45 | MHC.CM.PN ---
Patient has been medically cleared for dc to home today, no services. Patient has indicated that he is in agreement to going home today as long as he tests (-) for Covid (CM has relayed this message to MD). Patient does not feel he needs another copy of the IMM.
== END 2021-03-21 12:52 | disposition home or self-care (01) | DRG 177 ==
LOC: HO.ED 14:54 → HO.EDOVER 15:54 → HO.IMC 03-10 00:40
PROVIDERS: Internal Medicine; Admitting Provider Student in an Organized Health Care Education/Training Program; Emergency Provider Emergency Medicine; PCP Internal Medicine; Visit Provider Student in an Organized Health Care Education/Training Program
DX: U07.1 COVID-19 (principal); J12.82 Pneumonia due to coronavirus disease 2019; J96.01 Acute respiratory failure with hypoxia; K59.00 Constipation, unspecified; I65.29 Occlusion and stenosis of unspecified carotid artery; I10 Essential (primary) hypertension; Z87.891 Personal history of nicotine dependence; Z79.02 Long term (current) use of antithrombotics/antiplatelets; Z79.899 Other long term (current) drug therapy
CPT/HCPCS: 36415; 71045; 80048; 80053; 82947; 83615; 83735; 83880; 84484; 85025; 85027; 85379; 86140; 87040; 87635; 93005; 94640; 96361; 96374; 99285; J1100; J1650; J2405; J2930

== ENCOUNTER → 2021-08-17 13:45 | Outpatient (BNVA) | payer OTHER, SELFPAY | PROVIDERS: PCP Internal Medicine; Visit Provider Surgery Vascular Surgery | DX: I65.29 Occlusion and stenosis of unspecified carotid artery (principal); I73.9 Peripheral vascular disease, unspecified | CPT/HCPCS: 99202 ==

== ENCOUNTER 2021-09-27 10:31 | Outpatient (REF) | payer OTHER, SELFPAY ==
--- NOTE | ~2021-09-27 | US_ITS ---
EXAMINATION: BILATERAL LOWER EXTREMITY DUPLEX CLINICAL INFORMATION: Bilateral lower extremity peripheral vascular disease. TECHNIQUE: Real-time ultrasound and Doppler techniques (integrating B-mode 2-D vascular images, Doppler spectral analysis and color flow Doppler imaging) were utilized to interrogate the lower extremities. COMPARISON: None FINDINGS: RIGHT LEG: Common femoral artery: 110 cm/s, monophasic. Profunda femoris artery: 253 cm/s, monophasic Superficial femoral artery (proximal): 78 cm/s, monophasic Superficial femoral artery stent (mid): Occluded Superficial femoral artery stent (distal): Occluded Popliteal artery: 427 cm/s, monophasic Posterior tibial artery: 52.3 cm/s, monophasic Additional: Collaterals are present along the distal SFA and right popliteal artery. Flow is reversed within the proximal right popliteal artery. LEFT LEG: Common femoral artery: 237 cm/s, Triphasic Profunda femoris artery: 217 cm/s, Triphasic Superficial femoral artery (proximal): 109 cm/s, monophasic Superficial femoral artery (mid): 58.5 cm/s, monophasic Superficial femoral artery (distal): 187 cm/s, monophasic Popliteal artery: 63.3 cm/s, monophasic Posterior tibial artery: 54.2 cm/s, monophasic US/US MADIE complete IMPRESSION: RIGHT: The mid superficial femoral artery stent appears completely occluded. There is markedly increased velocity within the distal popliteal artery with monophasic waveforms present in the popliteal and posterior tibial arteries. LEFT: Elevated velocities within the common femoral artery with monophasic waveforms throughout the remainder of the left lower extremity suggest a hemodynamically significant stenosis. CTA lower extremity runoff may be helpful for further evaluation.
--- NOTE | ~2021-09-27 | US_ITS ---
EXAMINATION: BILATERAL LOWER EXTREMITY DUPLEX CLINICAL INFORMATION: Bilateral lower extremity peripheral vascular disease. TECHNIQUE: Real-time ultrasound and Doppler techniques (integrating B-mode 2-D vascular images, Doppler spectral analysis and color flow Doppler imaging) were utilized to interrogate the lower extremities. COMPARISON: None FINDINGS: RIGHT LEG: Common femoral artery: 110 cm/s, monophasic. Profunda femoris artery: 253 cm/s, monophasic Superficial femoral artery (proximal): 78 cm/s, monophasic Superficial femoral artery stent (mid): Occluded Superficial femoral artery stent (distal): Occluded Popliteal artery: 427 cm/s, monophasic Posterior tibial artery: 52.3 cm/s, monophasic Additional: Collaterals are present along the distal SFA and right popliteal artery. Flow is reversed within the proximal right popliteal artery. LEFT LEG: Common femoral artery: 237 cm/s, Triphasic Profunda femoris artery: 217 cm/s, Triphasic Superficial femoral artery (proximal): 109 cm/s, monophasic Superficial femoral artery (mid): 58.5 cm/s, monophasic Superficial femoral artery (distal): 187 cm/s, monophasic Popliteal artery: 63.3 cm/s, monophasic Posterior tibial artery: 54.2 cm/s, monophasic US/US arterial duplex LE BI IMPRESSION: RIGHT: The mid superficial femoral artery stent appears completely occluded. There is markedly increased velocity within the distal popliteal artery with monophasic waveforms present in the popliteal and posterior tibial arteries. LEFT: Elevated velocities within the common femoral artery with monophasic waveforms throughout the remainder of the left lower extremity suggest a hemodynamically significant stenosis. CTA lower extremity runoff may be helpful for further evaluation.
--- NOTE | ~2021-09-27 | US_ITS ---
EXAMINATION: US EXTRACRANIAL CAROTID DUPLEX, BILATERAL CLINICAL INFORMATION: Carotid artery stenosis. History of right internal carotid artery endarterectomy and stenting. COMPARISON: None TECHNIQUE: Real-time ultrasound and Doppler techniques (integrating B-mode 2-D vascular images, Doppler spectral analysis and color-flow Doppler imaging) were utilized to interrogate the extracranial carotid arteries, the vertebral arteries and proximal subclavian arteries bilaterally. The degree of stenosis is determined by criteria similar to NASCET. FINDINGS: Right Side: 1. There is no significant atherosclerotic plaque seen in the bifurcation/proximal ICA region. There is a stent within the right internal carotid artery which appears widely patent. 2. The common carotid artery PSV proximally is 60.9 cm/s and distally 45.7 cm/s. 3. The proximal internal carotid artery velocities are 31 cm/s systolic and 9.1 cm/s diastolic. 4. The external carotid artery appears mostly occluded with minimal, thread-like flow. 5. There is flow present within the proximal right vertebral artery, the velocities are low at 14.3 cm/s. No grayscale images obtained. 6. The subclavian artery waveforms are normal. Left Side: 1. There is mild atherosclerotic plaque seen in the bifurcation/proximal ICA region. 2. The common carotid artery PSV proximally is 110 cm/s and distally 87 cm/s. 3. The proximal internal carotid artery velocities are 113 cm/s systolic and 17.3 cm/s diastolic. 4. The proximal external carotid artery PSV is 123 cm/s. 5. The vertebral artery shows antegrade flow. 6. The subclavian artery waveforms are normal. US/US carotid duplex BI IMPRESSION: 1. RIGHT: A right internal carotid artery stent appears patent. Peak systolic velocity within the proximal stent is 31.2 cm/s. The right external carotid artery appears mostly occluded with minimal, thread-like flow. 2. LEFT: Minimal, non-hemodynamically significant stenosis of the proximal left internal carotid artery corresponding to a 0-49% stenosis by velocity criteria.
== END 2021-09-27 10:32 | disposition home or self-care (01) ==
LOC: HO.US 10:31
PROVIDERS: Visit Provider Surgery Vascular Surgery
DX: I73.9 Peripheral vascular disease, unspecified (principal); I65.29 Occlusion and stenosis of unspecified carotid artery
CPT/HCPCS: 93880; 93923; 93925

== ENCOUNTER → 2021-10-05 10:53 | Outpatient (BNVA) | payer OTHER, SELFPAY | PROVIDERS: PCP Nurse Practitioner; Visit Provider Surgery Vascular Surgery | DX: I73.9 Peripheral vascular disease, unspecified (principal); I65.21 Occlusion and stenosis of right carotid artery; Z79.02 Long term (current) use of antithrombotics/antiplatelets; Z79.82 Long term (current) use of aspirin; Z79.899 Other long term (current) drug therapy; Z95.818 Presence of other cardiac implants and grafts | CPT/HCPCS: 99212 ==

== ENCOUNTER 2022-10-06 12:39 | Outpatient (REF) | payer OTHER, SELFPAY ==
--- NOTE | ~2022-10-06 | US_ITS ---
EXAMINATION: US MADIE COMPLETE - NONINVASIVE ASSESSMENT OF THE ARTERIES OF BOTH LOWER EXTREMITIES WITH PVR EXAM AND BILATERAL LOWER EXTREMITY DUPLEX Michael Thompson MD CLINICAL INFORMATION: Peripheral vascular disease. TECHNIQUE: Ankle pulse volume recordings, ankle pressure measurements and ankle brachial indices were obtained of the lower extremity arterial system bilaterally in addition to duplex Doppler techniques with wave form analysis and measurement of velocities in the common femoral, profunda femoral, superficial femoral, popliteal and tibial arteries. The study was performed only at rest. COMPARISON: 09/27/2021 FINDINGS: AT REST: Right Le. The right ankle-brachial index is: 0.51 (previously 0.53). - >0.97-1.25 = normal - no significant arterial disease - 0.75-0.96 = mild peripheral arterial disease - 0.5-0.74 = moderate peripheral arterial disease - <0.50 = severe peripheral arterial disease 2. Right ankle pressure: Decreased. 3. Right ankle PVR waveform: Blunted. 4. Right direct duplex Doppler findings: Moderate plaque is present. Biphasic flow is noted in the common femoral artery and profunda femoris artery with monophasic flow below this level with an occluded stent. Stenosis is seen in the profunda femoris with velocity acceleration. Common Femoral: 107 Profunda Femoris: 210 Proximal SFA: 40 Mid SFA: Occluded stent, similar to prior Distal SFA: Occluded stent, similar to prior Popliteal: 17 Posterior tibial: 34 Left Leg: Triphasic flow noted in the left common femoral artery with plaque and mild stenosis. Below this level, moderate plaque is present and flow is monophasic. 1. The left ankle-brachial index is: 0.74 (previously 0.69). - >0.97-1.25 = normal - no significant arterial disease - 0.75-0.96 = mild peripheral arterial disease - 0.5-0.74 = moderate peripheral arterial disease - <0.50 = severe peripheral arterial disease 2. Left ankle pressure: Decreased. 3. Left ankle PVR waveform: Blunted. 4. Left direct duplex Doppler findings: Common Femoral: 178 Profunda Femoris: 152 Proximal SFA: 138 Mid SFA: 49 Distal SFA: 15 Popliteal: 28 Tibial: 40 US/US arterial duplex LE BI IMPRESSION: Evidence of moderate peripheral vascular disease bilaterally with ABIs of 0.53 on the right and 0.69 on the left. On the right, the SFA stent is occluded with monophasic flow seen below this level. On the left, flow is monophasic from the common femoral through the popliteal and tibial vessels. Findings are similar to prior study with occlusion of the mid and distal SFA on the right and monophasic flow below this level on the left. CT angiography may be of value for further evaluation.
--- NOTE | ~2022-10-06 | US_ITS ---
EXAMINATION: US EXTRACRANIAL CAROTID DUPLEX, BILATERAL CLINICAL INFORMATION: Carotid bruits. COMPARISON: 09/27/2021 TECHNIQUE: Real-time ultrasound and Doppler techniques (integrating B-mode 2-D vascular images, Doppler spectral analysis and color-flow Doppler imaging) were utilized to interrogate the extracranial carotid arteries, the vertebral arteries and proximal subclavian arteries bilaterally. The degree of stenosis is determined by criteria similar to NASCET. FINDINGS: Right Side: 1. There is a stent seen in the bifurcation/proximal ICA region. 2. The common carotid artery PSV proximally is 47 cm/s and distally 35 cm/s. 3. The proximal internal carotid artery velocities are 33 cm/s systolic and 8 cm/s diastolic. 4. The proximal external carotid artery PSV is 160 cm/s. 5. The vertebral artery shows antegrade flow. 6. The subclavian artery waveforms are normal. Left Side: 1. There is mild atherosclerotic plaque seen in the bifurcation/proximal ICA region. 2. The common carotid artery PSV proximally is 95 cm/s and distally 75 cm/s. 3. The proximal internal carotid artery velocities are 52 cm/s systolic and 10 cm/s diastolic. 4. The proximal external carotid artery PSV is 83 cm/s. 5. The vertebral artery shows antegrade flow. 6. The subclavian artery waveforms are normal. US/US carotid duplex BI IMPRESSION: 1. RIGHT: Minimal, non-hemodynamically significant stenosis of the proximal right internal carotid artery corresponding to a 0-49% stenosis by velocity criteria. 2. LEFT: Minimal, non-hemodynamically significant stenosis of the proximal left internal carotid artery corresponding to a 0-49% stenosis by velocity criteria. 3. There is no change in the category severity of disease when compared to the previous study dated 09/27/2021.
== END 2022-10-06 12:40 | disposition home or self-care (01) ==
LOC: HO.US 12:39
PROVIDERS: PCP Nurse Practitioner Family; Visit Provider Surgery Vascular Surgery
DX: I73.9 Peripheral vascular disease, unspecified (principal); I65.23 Occlusion and stenosis of bilateral carotid arteries
CPT/HCPCS: 93880; 93923; 93925

== ENCOUNTER 2022-11-17 10:45 | Outpatient (AMB) | payer OTHER, SELFPAY ==
--- NOTE | 2022-11-17 10:54 | A.OFFVIS_ITS ---
Intake Vital Signs 11/17/22 10:57 11/17/22 11:07 Height 6 ft Weight 240 lb BMI 32.5 BP 118/68 122/70 Blood Pressure Location Lt brachial Rt brachial Position Sitting Sitting Intake Visit Reasons: 1 year follow up s/p Art US Intake Note: 1 yr follow up s/p Arterial US 10/06/22 and carotid US 10/06/22, HX of bilateral CEAs Right CEA 12/22/2018 and Right carotid stent 11/22/2012. Right LE angioplasty/stent placement 09/25/2013. Pt states that he can walk 1/4 a mile before stopping 3-4 mins. Pt states he stops about 3 or 4 times and then he can walk up to 2 miles. Right LE cramping and pain Accompanied by: Self / Same As Patient Allergies No Known Allergies Allergy (Unverified 11/17/22 11:03) HPI 1 year follow up s/p Art US HPI Details Very pleasant 72-year-old gentleman presents for follow-up regarding carotid surveillance and peripheral vascular disease. Has had no significant interval changes. He reports he can go about a quarter of a mi. he also is continues to be quite active and athletic. He goes hiking on a regular basis. In addition he bikes 10-12 minutes with no significant issues. His goal is to hike a trail from [place] to [place]. He now presents for surveillance follow-up in terms of his carotids and lower extremity arterial testing. [facility] Medical History Carotid stenosis Hypertension Pulsus bigeminus Surgical History H/O carotid endarterectomy Social History Household Members: Family Housing: House Do you presently have visiting nurse or other home services: No Patient Tobacco Use Status: Former Tobacco user service: Yes Current occupational status: retired Review of Systems Const All systems reviewed & are unremarkable except as noted in HPI and below Reports no additional complaints ENT Reports Normal hearing present Card Denies chest pain, Denies chest pain at rest, Denies chest pain with activity and Denies pedal edema Resp Denies cough GI Denies abdominal pain Musc Denies abnormal gait, Denies muscle cramps and Denies radiating pain into limb Skin/Breast Denies skin ulcer and Denies wounds Neuro Reports Normal hearing present and Denies abnormal gait Psych Reports no additional complaints Physical Exam Vital Signs: Last Vital Signs BP 122/70 11/17/22 11:07 BMI result Body Mass Index 32.5 Const General: cooperative, healthy appearing and comfortable Orientation/consciousness: oriented to person, oriented to place and oriented to time HEENT Head: Yes normal to inspection Neck Neck: Yes normal visual inspection Carotids: no bruits Chest Chest palpation & inspection: normal inspection of the chest Resp Effort & Inspection: normal respiratory effort and able to speak in complete sentences Auscultation: clear to auscultation bilaterally, no crackles, no rales, no rhonchi and no wheezes Cardio Rate: regular rate Rhythm: regular rhythm Heart sounds: S1 normal heart sound present and S2 normal heart sound present Bruits: no carotid bruits Peripheral pulses: Peripheral pulses 2+ throughout GI Inspection: Yes normal to inspection Skin Wounds: no wounds Hair: normal Neuro General: oriented to person, oriented to place and oriented to time Cranial nerves: Yes CN's II-XII intact bilaterally and Yes Normal hearing present Cognition (Neuro): normal cognition Motor exam (neuro): 5/5 motor strength present throughout Extrem Other: venous exam: No significant superficial varicosities or spider telangiectasias, minimal edema General: No clubbing, No cyanosis and No edema Psych Appearance: grossly normal Mental Status: mental status grossly normal Speech and movement: Normal speech and movement present Results Reviewed Results Reviewed: Noninvasive arterial testing dated 10/06/2022 demonstrates carotids bilateral 0-49% stenosis. Noninvasive arterial testing dated 10/06/2022 demonstrates MADIE on the right of 0.51 and on the left of 0.7 for right side known SFA occlusion with occluded stent. Written report and images were reviewed Assessment & Plan Assessment & Plan (1) Carotid stenosis: Comment: 12/22/2008 - right carotid endarterectomy done at [facility] 11/22/2012 - right carotid stent done at [facility] Code(s): I65.29 - Occlusion and stenosis of unspecified carotid artery Plan: In short patient has asymptomatic carotid disease. We have reviewed signs and symptoms of a stroke. We also discussed risk factor modification inclusive a healthy diet low in cholesterol. The patient will follow up with us with surveillance ultrasound of the carotids 1 year. Should there be any changes or signs or symptoms of a stroke we will be happy to see them back sooner. Thank you for allowing us to participate in this patient's care. If there are any questions or concerns please do not hesitate to contact us. (2) PAD (peripheral artery disease): Comment: 09/25/2013 - right lower extremity endovascular intervention done at [facility] Code(s): I73.9 - Peripheral vascular disease, unspecified Plan: In short patient has stable claudication. he did inquire about surgical intervention. At the current time he does have stable claudication and it would not be indicated. I know he is interested in going on a a significantly long hike for nearly 5 months. Unfortunately he is able to go a quarter of a mi and I do not think surgical intervention would be appropriate for him. We will continue to manage him conservatively. I did review the pathophysiology of peripheral vascular disease with the patient. In addition we did discuss routine conservative measures including a healthy diet and the importance of exercise and ambulation. We did discuss risk factor modification. The patient will continue to to follow-up with surveillance follow-up in approximately One year. Thank you for allowing us to participate in this patient's care. If there are any questions or concerns please do not hesitate to contact us. Orders: Orders US arterial duplex LE BI 364 Days I73.9 - Peripheral vascular disease, unspecified US carotid duplex BI 364 Days I65.29 - Occlusion and stenosis of unspecified carotid artery Coding Level of Care Code Est Pt Level 4 (85971) Diagnoses Carotid stenosis I65.29 PAD (peripheral artery disease) I73.9
[2022-11-17 10:57] VITALS: BP 118/68; BMI 32.5
[2022-11-17 11:07] VITALS: BP 122/70
== END 2022-11-17 11:28 | disposition home or self-care (01) ==
PROVIDERS: PCP Nurse Practitioner Family; Visit Provider Surgery Vascular Surgery
DX: I65.29 Occlusion and stenosis of unspecified carotid artery (principal); I73.9 Peripheral vascular disease, unspecified; Z95.820 Peripheral vascular angioplasty status with implants and grafts
CPT/HCPCS: 99214

== ENCOUNTER → 2022-11-17 10:45 | Outpatient (BNVA) | payer OTHER, SELFPAY | PROVIDERS: PCP Nurse Practitioner Family; Visit Provider Surgery Vascular Surgery | DX: I65.29 Occlusion and stenosis of unspecified carotid artery (principal); I73.9 Peripheral vascular disease, unspecified | CPT/HCPCS: 99212 ==

== ENCOUNTER 2023-11-01 09:35 | Outpatient (REF) | payer OTHER, SELFPAY ==
--- NOTE | ~2023-11-01 | US_ITS ---
EXAMINATION: NONINVASIVE ASSESSMENT OF THE ARTERIES OF BOTH LOWER EXTREMITIES INCLUDING PVR EXAM AND BILATERAL LOWER EXTREMITY DUPLEX CLINICAL INFORMATION: Peripheral vascular disease COMPARISON: Lower extremity arterial duplex 10/06/2022 TECHNIQUE: Ankle pulse volume recordings, ankle pressure measurements and ankle brachial indices were obtained of the lower extremity arterial system bilaterally in addition to duplex Doppler techniques with wave form analysis and measurement of velocities in the common femoral, profunda femoral, superficial femoral, popliteal, tibial and peroneal arteries. The study was performed only at rest. FINDINGS: RIGHT LEG 1. Right Ankle-Brachial Index: 0.49 (higher of the DP/PT) >0.97-1.25 = normal - no significant arterial disease 0.75-0.96 = mild peripheral arterial disease 0.5-0.74 = moderate peripheral arterial disease <0.50 = severe peripheral arterial disease <0.30 = critical arterial disease 2. Segmental Pressures (mmHg): Brachial: 156 Ankle: PT 78, DP 64 3. PVR Waveforms: Ankle: Abnormal 4. Direct Duplex: Common femoral artery: 49.9 cm/s, triphasic Profunda femoris artery: 169 cm/s, triphasic Superficial femoral artery (proximal): 86.3 cm/s, triphasic Superficial femoral artery (mid): Occluded stent Superficial femoral artery (distal): Occluded stent Proximal Popliteal artery: 40 cm/s, Multiphasic Distal popliteal artery: 37.8 cm/s, Multiphasic LEFT LE. Left Ankle-Brachial Index: 0.52 (higher of the DP/PT) >0.97-1.25 = normal - no significant arterial disease 0.75-0.96 = mild peripheral arterial disease 0.5-0.74 = moderate peripheral arterial disease <0.50 = severe peripheral arterial disease <0.30 = critical arterial disease 2. Segmental Pressures: Brachial: 160 Ankle: PT 82, DP 83 3. PVR Waveforms: Ankle: abnormal 4. Direct Duplex: Common femoral artery: 183.1 cm/s, triphasic Profunda femoris artery: 112 cm/s, triphasic Superficial femoral artery (proximal): 55.6 cm/s, biphasic Superficial femoral artery (mid): 23.1 cm/s, monophasic Superficial femoral artery (distal): 24.3 cm/s, monophasic Proximal Popliteal artery: 22.6 cm/s, monophasic Mid posterior tibial artery: 45 cm/s, monophasic US/US arterial duplex BI w/ MADIE IMPRESSION: 1. Right MADIE 0.49 consistent with moderate peripheral arterial disease. The right superficial femoral artery stent is occluded, unchanged. 2. Left MADIE 0.52 consistent with moderate peripheral arterial disease. There is monophasic flow throughout the left lower extremity.
--- NOTE | ~2023-11-01 | US_ITS ---
EXAMINATION: US EXTRACRANIAL CAROTID DUPLEX, BILATERAL CLINICAL INFORMATION: Occlusion and stenosis of unspecified carotid artery COMPARISON: Carotid ultrasound 10/06/2022. TECHNIQUE: Real-time ultrasound and Doppler techniques (integrating B-mode 2-D vascular images, Doppler spectral analysis and color-flow Doppler imaging) were utilized to interrogate the extracranial carotid arteries, the vertebral arteries and proximal subclavian arteries bilaterally. The degree of stenosis is determined by criteria similar to NASCET. FINDINGS: Right Side: 1. There is a stent in the bifurcation/proximal ICA region. 2. The common carotid artery PSV proximally is 50 cm/s and distally 33 cm/s. 3. The proximal internal carotid artery velocities are 31 cm/s systolic and 10 cm/s diastolic. 4. The proximal external carotid artery PSV is 545 cm/s. 5. The vertebral artery shows antegrade flow. 6. The subclavian artery waveforms are triphasic. Left Side: 1. There is mild atherosclerotic plaque seen in the bifurcation/proximal ICA region. History of endarterectomy. 2. The common carotid artery PSV proximally is 82 cm/s and distally 77 cm/s. 3. The proximal internal carotid artery velocities are 74 cm/s systolic and 14 cm/s diastolic. 4. The proximal external carotid artery PSV is 77 cm/s. 5. The vertebral artery shows anterior flow. 6. The subclavian artery waveforms are triphasic. US/US carotid duplex BI IMPRESSION: 1. RIGHT: Right ICA stent is patent with no Doppler evidence of in-stent stenosis. High-grade stenosis of the external carotid artery origin. 2. LEFT: Endarterectomy with no significant atherosclerosis cord Doppler evidence of restenosis. 3. There is no change in the category severity of disease when compared to the previous study dated 10/06/2022.
== END 2023-11-01 09:36 | disposition home or self-care (01) ==
LOC: HO.US 09:35
PROVIDERS: PCP Nurse Practitioner Family; Visit Provider Surgery Vascular Surgery
DX: I73.9 Peripheral vascular disease, unspecified (principal); I65.21 Occlusion and stenosis of right carotid artery
CPT/HCPCS: 93880; 93922; 93925